=== PATIENT | female | born 1995 | race Caucasian/White ===

== ENCOUNTER 2021-09-03 14:29 | Emergency (ER) | payer OTHER, SELFPAY ==
--- NOTE | ~2021-09-03 | XR_ITS ---
EXAMINATION: XR CHEST CLINICAL INFORMATION: Shortness of breath, history of COVID. COMPARISON: None TECHNIQUE: 2 views of the chest were obtained. FINDINGS: The lungs are clear. There are no pleural effusions. The heart and mediastinal structures are unremarkable. XR/XR chest 2V IMPRESSION: No acute cardiopulmonary process.
[2021-09-03 14:37] VITALS: BP 115/58; BP 126/82; PULSE 78; PULSE 85; RESP 17; O2SAT 98; O2SAT 99; BMI 37.4
--- NOTE | 2021-09-03 14:57 | ED_ITS ---
HPI - General Adult General Chief complaint: Anxiety Stated complaint: SOB Time Seen by Provider: 09/03/21 14:48 Source: patient, EMS and RN notes reviewed Mode of arrival: ambulatory Limitations: no limitations History of Present Illness HPI narrative: Pt brought by EMS for chest tightness, SOB and feeling anxious. Pt feeling better in room. PT given albuterol neb by EMS, which helped (per EMS exp wheezes prior to neb). Pt states she has a hx of feeling anxious, but no dx of anxiety, no meds. pt tested + for covid 7 days ago (both rapid and pcr). Symptoms were MICHAEL and st. MICHAEL resolved, st persistant and over last 3 days mild cough and SOB. pt states she felt some palpitations or flutterin of her heart this morning, but none now. pt. not vaccinated for covid Related Data Previous Rx's Medication Instructions Recorded albuterol sulfate 90 mcg/actuation 1 inh INHALATION QID PRN #6.7 g 09/03/21 aerosol inhaler lorazepam 0.5 mg tablet (Ativan) 0.5 mg PO BID PRN #5 tab 09/03/21 Allergies Allergy/AdvReac Type Severity Reaction Status Date / Time dog dander [DOG] Allergy Mild SNEEZING Unverified 04/21/20 19:19 WATER EYS, HIVES PURELL Allergy Intermediate SWELLING Uncoded 04/21/20 19:19 Review of Systems Verdana 4l Review of Systems: Verdana 4d Stephan 4d . Constitutional : No trauma, No Weight loss, No Fever, No Chills, ENT/Mouth : No Hearing loss, No Ear Pain, No Nasal Congestion, No Sinus Pain, No Hoarseness, + sore throat, No Rhinorrhea, No Swallowing Difficulty Cardiovascular : resolved Chest tightness, , No SOB Respiratory : + Cough, mild Dyspnea Gastrointestinal : No Nausea, No Vomiting, No Diarrhea, No abdominal Pain, Genitourinary : No Dysuria, No Urinary Frequency, Musculoskeletal : no Back pain, No neck pain, No joint stiffness, No joint swelling Skin : No Skin Lesions, No rash or signs of infection Neuro : No Weakness, No radiation, No Numbness, No Paresthesias, No headache, Denies history of IV drug usage. Psych : No SI/HI/thoughts of self injury, +anxiety Yes all other systems are reviewed and are negative [facility] Past Medical History Attestation statement: The following information was validated with the patient. Medical History (Updated 09/03/21 @ 15:52 by VANNA Rea) No known health problems Social History Social History Advance Directives: No Advance Directives Information Provided: No Patient : No Physical Exam Verdana 4l Vital Signs: Verdana 4d Verdana 4d Vital Signs: Verdana 4d Verdana 4Bd Last Vital Signs Verdana 4d Server Programmer New 4d Server Programmer New 4d Pulse 78 09/03/21 14:37 Server Programmer New 4d Resp 17 09/03/21 14:37 Server Programmer New 4d BP 126/82 09/03/21 14:37 Pulse Ox 98 09/03/21 14:37 BMI result Body Mass Index 37.4 vital signs have been reviewed as normal and appeared to be correct.? Blood pressure normal.? Heart rate normal.? Respiration rate normal.? Temperature normal.? Oxygen saturation normal. Appearance: Alert. Oriented X3. appears anxious and tearful. ? Head: Normal external exam. Normocephalic. Atraumatic.? Eyes: PERRLA. EOMI. Conjunctiva and sclera normal. Eyelids normal. ? ENT: EAC normal. Pharynx normal. Uvula midline. Moist mucous membranes. ? No trismus noted.? No drooling noted.? No muffled voice noted. Neck: Normal inspection. Neck supple. Normal ROM. No adenopathy. No meningeal signs. No neck mass noted. CVS: Normal heart rate and rhythm. Heart sound normal. No murmurs noted. Respiratory: No respiratory distress. Painless inspiration. Breath sounds normal. No wheezes/rales/rhonchi noted. Chest nontender. ? No accessory muscle usage noted or decreased air movement noted. Abdomen: Soft and nontender Back: ?No CVA tenderness.? Full range of motion noted. Skin: Skin warm and dry.? Normal skin color.? Normal skin turgor. No rashes/lesions/lacerations noted. Extremities: No lower extremity edema. ? Extremities exhibit normal range of motion.? Extremities nontender. Normal gait Neuro: Oriented X 3.? No motor deficit noted. No sensory deficit noted. Course Course Course Narrative: 15:00 pt appears more calm and not feeling SOB now. 15:30 discussed results of CXR, pt has f/u with pcp in 10 days. Reassured patient and also discussed reasons to return to ED. Medical Decision Making Imaging Data Chest x-ray: Attestation: I personally reviewed and interpreted this imaging study as follows: Radiologist's impression: EXAMINATION: XR CHEST CLINICAL INFORMATION: Shortness of breath, history of COVID. COMPARISON: None TECHNIQUE: 2 views of the chest were obtained. FINDINGS: The lungs are clear. There are no pleural effusions. The heart and mediastinal structures are unremarkable. XR/XR chest 2V IMPRESSION: No acute cardiopulmonary process. Discharge Plan Discharge Clinical Impression: Acute anxiety, COVID Patient Disposition: Home, Self-Care Instructions: Anxiety (ED), COVID-19 (Coronavirus Disease 2019) (ED) Additional Instructions: Take medication as prescribed. follow up with primary care provider on 09/15/21. Return if worse. Prescriptions: New lorazepam [Ativan] 0.5 mg tablet 0.5 mg PO BID PRN (Reason: anxiety) Qty: 5 0RF albuterol sulfate 90 mcg/actuation HFA aerosol inhaler 1 inh inhalation QID PRN (Reason: shortness of breath or wheezing) Qty: 6.7 0RF Referrals: Jean Carlos Hernandez MD [Primary Care Provider] - 2 days Interventions: ED Discharge Assessment Last Done: 09/03/21 16:11 Discharge Date/Time: 09/03/21 16:22
[2021-09-03] MEDS: LORazepam 0.5 MG TABLET PO (15:24)
== END 2021-09-03 16:22 | disposition home or self-care (01) ==
PROVIDERS: Emergency Provider Emergency Medicine; PCP Internal Medicine
DX: U07.1 COVID-19 (principal); F41.1 Generalized anxiety disorder; R06.02 Shortness of breath; R51.9 Headache, unspecified; Z79.899 Other long term (current) drug therapy
CPT/HCPCS: 71046; 99283

== ENCOUNTER 2023-02-18 09:34 | Emergency (ER) | payer OTHER, SELFPAY ==
[2023-02-18 09:43] VITALS: BP 147/92; PULSE 87; RESP 18; TEMP 36.8; O2SAT 100
[2023-02-18 10:13] LABS: Hematocrit 41.8 % (37.0-47.0); Hemoglobin 14.1 g/dl (12.0-16.0); Mean Corpuscular HGB Conc 33.7 g/dl (31.0-35.0); Mean Corpuscular Hemoglobin 31.7 pg (27.0-33.0); Mean Corpuscular Volume 93.9 fL (80.0-98.0); Platelet Count 211 X10*3/uL (160-400); Red Blood Count 4.45 X10*6/uL (4.20-5.50); White Blood Count 5.2 X10*3/uL (4.8-10.8)
[2023-02-18 10:14] LABS: Appearance Urine Clear; Color Urine Yellow; Glucose Urine UA Negative (Negative); Leukocyte Esterase Urine Negative (Negative); Nitrite Urine Negative (Negative); Specific Gravity - Urine >= 1.030 (1.005-1.025); Urine Blood Negative (Negative); Urine Ketones Negative (Negative); Urine Protein Trace mg/dL (Neg-Trace)
[2023-02-18 10:15] LABS: Urine Pregnancy NEGATIVE (NEGATIVE)
[2023-02-18 10:16] LABS: UPreg QC Valid YES
[2023-02-18 10:29] LABS: Anion Gap 13 (12-20); Blood Urea Nitrogen 15 mg/dL (9-16); Calcium 9.1 mg/dL (8.4-10.2); Carbon Dioxide 22 mmol/L (22-29); Chloride 106 mmol/L (96-108); Creatinine Clr Calc Pharmacy 142.4; Estimated Glomerular Filt Rate > 60; Glucose Random 105 mg/dL (60-115); Potassium 3.8 mmol/L (3.3-5.1); Sodium 137 mmol/L (135-145)
== END 2023-02-18 17:53 | disposition left against medical advice (07) ==
PROVIDERS: Emergency Provider Emergency Medicine; PCP Internal Medicine
DX: R10.9 Unspecified abdominal pain (principal)
CPT/HCPCS: 36415; 80048; 81003; 81025; 85027; 99282; 99283

== ENCOUNTER 2023-03-25 11:05 | Emergency (ER) | payer OTHER, SELFPAY ==
[2023-03-25 11:49] VITALS: BP 148/88; PULSE 69; RESP 16; TEMP 36.6; O2SAT 98; BMI 48.7
--- NOTE | 2023-03-25 11:58 | ED.EAR ---
HPI - Ear Problem General Chief complaint: Ear Problems Stated complaint: Headache/R ear pain Time Seen by Provider: 03/25/23 11:58 Source: patient and RN notes reviewed Mode of arrival: ambulatory Limitations: no limitations History of Present Illness HPI Narrative: This is a 27-year-old female, with no known past medical history, presenting to the emergency department with complaints of right ear pain x 3 days. Patient was seen at an urgent care yesterday and was told that she had fluid behind her eardrum new with prescribed an allergy medication. 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 She endorses a slight headache as well as dizziness. Denies fevers, chills, sore throat, runny nose, chest pain, shortness breath, cough. She has not been swimming recently. She has been taking ibuprofen for symptoms which has provided her without any relief. No other complaints or concerns at this. MD Complaint: ear pain Location: right ear Duration: constant Severity: moderate Relieving factors: nothing Exacerbating factors: nothing Discharge from ear: no Associated symptoms ear: headache Treatment prior to arrival: none Related Data Previous Rx's Medication Instructions Recorded albuterol sulfate 90 mcg/actuation 1 inh inhalation QID PRN shortness 09/03/21 aerosol inhaler of breath or wheezing #6.7 grams lorazepam 0.5 mg tablet (Ativan) 0.5 mg PO BID PRN anxiety #5 tabs 09/03/21 ofloxacin 0.3 % ear drops 10 drp otic (ear) left Q24H 7 days 03/25/23 #10 mL Allergies Allergy/AdvReac Type Severity Reaction Status Date / Time dog dander [DOG] Allergy Mild SNEEZING Verified 03/25/23 11:48 WATER EYS, HIVES PURELL Allergy Intermediate SWELLING Uncoded 04/21/20 19:19 Review of Systems Review of Systems: Yes all other systems are reviewed and are negative Constitutional: Constitutional: Reports as per [facility] Past Medical History Medical History No known health problems Social History Social History Advance Directives: No Advance Directives Information Provided: Yes Physical Exam Vital Signs: Vital Signs: Last Vital Signs Temp 97.9 F 03/25/23 11:49 Pulse 69 03/25/23 11:49 Resp 16 03/25/23 11:49 BP 148/88 H 03/25/23 11:49 Pulse Ox 98 03/25/23 11:49 O2 Del Method Room Air 03/25/23 11:49 BMI result Body Mass Index 48.7 Const: General: cooperative, comfortable and no acute distress Orientation/consciousness: patient oriented x3 Limitations: no limitations HEENT: Other: Right ear canal is mildly erythematous, nonedematous. TM is nonerythematous nonbulging. TM is intact. Head: Yes normal to inspection, Yes normocephalic and Yes atraumatic Ears: hearing grossly normal bilaterally General nose exam: Normal external nose present Face and sinus: Yes normal facial exam Mouth: Normal oral and palatal mucosa present, oropharynx normal and moist mucous membranes Throat: Yes posterior oropharynx normal Eyes: General: appearance normal, both eyes and all related structures Eyelids: Yes eyelids normal Conjunctivae: conjunctivae normal Sclerae: sclerae normal Pupils: Equal, round and reactive pupils present EOM: EOMs intact bilaterally Neck: Neck: Yes normal visual inspection, Yes full ROM and Yes no lymphadenopathy Lymphatic: no lymphadenopathy noted Chest: Chest palpation & inspection: normal inspection of the chest Resp: Effort & Inspection: normal respiratory effort and able to speak in complete sentences Auscultation: clear to auscultation bilaterally, no crackles, no rales, no rhonchi and no wheezes Cardio: Rate: regular rate Rhythm: regular rhythm Heart sounds: S1 normal heart sound present and S2 normal heart sound present GI: Inspection: Yes normal to inspection Skin: General skin exam: no rashes or lesions noted Trauma: no lacerations or abrasions Wounds: no wounds Neuro: General: patient oriented x3 and moves all extremities Cranial nerves: Yes Equal, round and reactive pupils present Extrem: General: Yes normal to inspection Right upper extremity: normal to inspection Left upper extremity: normal to inspection Right lower extremity: normal to inspection Left lower extremity: normal to inspection Medical Decision Making Medical Decision Making MDM Narrative: 27-year-old presenting to emergency for evaluation right ear pain. Mildly hypertensive at 148/88, likely due to pain. All other vital signs WNL. DDX including otitis media vs otitis externa. Less likely TM perforation, sinusitis, malignant otitis. Signs and symptoms consistent with otitis externa. TM is intact, therefore will d/c on ear drops. Encouraged to continue with allergy medications to help. Disccussed return precautions. Pt understands and agrees with plan. stable for d/c. Differential Diagnosis Differential Diagnoses: The differential diagnosis associated with the presentation includes see above Discharge Plan Discharge Clinical Impression: Otitis externa Patient Disposition: Home, Self-Care Instructions: Otitis Externa (ED) Additional Instructions: Please use prescribed antibiotic as directed. Take ibuprofen and Tylenol as needed for your pain. Please take allergy meds as you as you have fluid behind her eardrum. Watch for any new worsening symptoms including but not limited to worsening dizziness, please return for re-evaluation. Prescriptions: New ofloxacin 0.3 % drops 10 drp otic (ear) left Q24H 7 Days Qty: 10 0RF No Action lorazepam [Ativan] 0.5 mg tablet 0.5 mg PO BID PRN (Reason: anxiety) Qty: 5 0RF albuterol sulfate 90 mcg/actuation HFA aerosol inhaler 1 inh inhalation QID PRN (Reason: shortness of breath or wheezing) Qty: 6.7 0RF Interventions: ED Discharge Assessment Last Done: 03/25/23 12:04 Discharge Date/Time: 03/25/23 12:06
== END 2023-03-25 12:06 | disposition home or self-care (01) ==
PROVIDERS: Emergency Provider Emergency Medicine
DX: H60.91 Unspecified otitis externa, right ear (principal); Z79.899 Other long term (current) drug therapy
CPT/HCPCS: 99282; 99283

== ENCOUNTER 2023-06-12 11:19 | Outpatient (AMB) | payer OTHER, SELFPAY ==
--- NOTE | 2023-06-12 12:22 | MHC.OFFWIV ---
Intake Vital Signs 06/12/23 12:25 Height 5 ft 8 in Weight 320 lb BMI 48.7 BP 122/76 Blood Pressure Location Rt brachial Position Sitting Pulse 79 Pulse Source Pulse Oximeter Temp 98 F Temp Source Temporal Artery Scan Pulse Oximetry (%) 97 Oxygen Delivery Method Room Air Intake Visit Reasons: EP, chest congestion, cough (masked) Intake Note: Pt is here c/o chest congestion and on going cough. Allergies dog dander [DOG] Allergy (Mild, Verified 06/12/23 12:44) SNEEZING WATER EYS, HIVES PURELL Allergy (Intermediate, Uncoded 06/12/23 12:25) SWELLING Medication List - Last Reconciled 06/12/23 by RHIANNA Chaparro No Known Home Meds Do you need a note to return to daycare/school/sports/work: Yes HPI HPI Comments History of Present Illness Details here today w 5 days of nasal congestion, headache, pressure behind eyes, pain in bilat ears R>L, last night started w/ chest congestion and cough. not taking anything otc to help. denies fever, chills, known sick contacts. [facility] Medical History No known health problems Review of Systems Const All systems reviewed & are unremarkable except as noted in HPI and below Physical Exam Vital Signs: Last Vital Signs Temp 98 F 06/12/23 12:25 Pulse 79 06/12/23 12:25 BP 122/76 06/12/23 12:25 Pulse Ox 97 06/12/23 12:25 Oxygen Delivery Method Room Air 06/12/23 12:25 BMI result Body Mass Index 48.7 Const Other: AWAKE ALERT MILDLY ILL APPEARING NAD PERRLA, SCLERAS CLEAR TM INTACT, PURULENT EFFUSIONS BILAT R>L NASAL CONGESTION, FRONTAL AND MAXILLARY SINUSES TTP BILAT, TURBINATES PALE AND EDEMATOUS PHARYNX WNL LS CTAB MILD COUGH W/O DISTRESS SKIN PWD Assessment & Plan Assessment & Plan (1) Sinusitis: Code(s): J32.9 - Chronic sinusitis, unspecified Qualifiers: Sinusitis location: pansinusitis Chronicity: acute Recurrence: non-recurrent Qualified Code(s): J01.40 - Acute pansinusitis, unspecified Medications: New albuterol sulfate 90 mcg/actuation 2 puffs inhalation Q4-6H 30 days PRN 8.5 grams 0RF shortness of breath or wheezing amoxicillin-pot clavulanate 875-125 mg 1 tab PO BID 7 days 14 tabs 0RF Patient Instructions: TAKE AB DIRECTED, WITH FOOD. USE OTC FLONASE AND/OR NASAL SALINE BUT NO OTHER DECONGESTANTS SHE ASKED FOR A REFILL ON ALBUTEROL TO HAVE ON HAND, THIS WAS SENT IN TODAY Coding Level of Care Code Est Pt Level 3 (56888) Diagnoses Acute non-recurrent pansinusitis J01.40 Sinusitis location: pansinusitis Chronicity: acute Recurrence: non-recurrent
[2023-06-12 12:25] VITALS: BP 122/76; PULSE 79; TEMP 36.6; O2SAT 97; BMI 48.7
== END 2023-06-12 13:12 | disposition home or self-care (01) ==
PROVIDERS: Visit Provider Nurse Practitioner Family
DX: J01.40 Acute pansinusitis, unspecified (principal)
CPT/HCPCS: 99213

== ENCOUNTER 2023-06-17 12:34 | Emergency (ER) | payer OTHER, SELFPAY ==
--- NOTE | ~2023-06-17 | XR_ITS ---
EXAMINATION: XR CHEST CLINICAL INFORMATION: Cough, pain Patient states rib pain, congestion, and shortness of breath COMPARISON: Chest 09/03/2021 TECHNIQUE: 2 views of the chest were obtained. 1325 FINDINGS: No significant abnormality is noted involving the heart, lungs, mediastinum, bony thorax or soft tissues. XR/XR chest 2V IMPRESSION: No acute cardiopulmonary disease.
[2023-06-17 12:53] VITALS: BP 139/73; PULSE 84; RESP 18; TEMP 36.6; O2SAT 98; BMI 48.7
--- NOTE | 2023-06-17 12:54 | ED.GENADULT ---
HPI - General Adult General Chief complaint: Upper Respiratory Symptoms Stated complaint: Worsening sinus infection Time Seen by Provider: 06/17/23 13:47 Source: patient Mode of arrival: ambulatory Limitations: no limitations History of Present Illness HPI narrative: 28-year-old female previously healthy presents the ER with complaints of sinus congestion, sinus pressure, cough, bilateral rib pain, right eye tearing >1 week. she went to urgent care on 06/12 and was diagnosed with a sinus infection started on Augmentin. She took 48 hours of Augmentin but developed an itching rash over her body so she discontinued the medication. She denies chest pain, shortness of breath, leg swelling or leg pain. no recent travel, recent surgeries, OCP use, family history of DVT or PE Related Data Previous Rx's Medication Instructions Recorded Ventolin HFA 90 mcg/actuation 2 puff inhalation Q4-6H PRN 06/12/23 aerosol inhaler (albuterol sulfate) shortness of breath or wheezing 30 days #18 grams amoxicillin 875 mg-potassium 1 tab PO BID 7 days #14 tabs 06/12/23 clavulanate 125 mg tablet doxycycline monohydrate 100 mg 100 mg PO BID #20 tabs 06/17/23 tablet prednisone 20 mg tablet 40 mg (2 x 20 mg) PO DAILY #10 tabs 06/17/23 Allergies Allergy/AdvReac Type Severity Reaction Status Date / Time dog dander [DOG] Allergy Mild SNEEZING Verified 06/12/23 12:44 WATER EYS, HIVES amoxicillin [From Augmentin] Allergy Rash Verified 06/17/23 12:56 clavulanic acid Allergy Rash Verified 06/17/23 12:56 [From Augmentin] PURELL Allergy Intermediate SWELLING Uncoded 06/12/23 12:25 Review of Systems Review of Systems: Yes all other systems are reviewed and are negative Constitutional: Constitutional: Reports no additional constitutional complaints, Denies body ache(s), Denies chills, Denies fever(s), Denies headache(s) and Denies weakness Eyes: Eyes: Reports no additional eye complaints and Denies change in vision ENT: Reports system reviewed and no additional complaints, except as documented, Denies dizziness, Reports otalgia, Denies headache(s), Denies nasal congestion, Denies nasal discharge, Denies neck pain, Reports sinus pain and Reports sinus pressure Cardiovascular: Cardiovascular: Reports no additional cardiovascular complaints, Reports chest pain, Denies leg edema and Denies dyspnea Respiratory: Respiratory: Reports no additional respiratory complaints, Denies cough and Denies dyspnea Gastrointestinal: Gastrointestinal: Reports no additional gastrointestinal complaints, Denies abdominal pain, Denies diarrhea, Denies nausea and Denies vomiting Genitourinary: Genitourinary: Reports no additional female genitourinary complaints and Denies urinary incontinence Musculoskeletal: Musculoskeletal: Reports no additional musculoskeletal complaints, Denies back pain, Denies arthralgias, Denies joint swelling, Denies neck pain, Denies numbness and Denies tingling Integumentary/Breasts: Skin/Breast: Reports system reviewed and no additional complaints, except as docu and Denies rash Neurologic: Reports system reviewed and no additional complaints, except as documented, Denies Abnormal speech present, Denies dizziness, Denies headache(s), Denies numbness, Denies tingling and Denies weakness PMFSH Past Medical History Attestation statement: The following information was validated with the patient. Source: old records reviewed and nursing notes reviewed Medical History No known health problems Social History Social History Advance Directives: No Physical Exam ED Vital Signs: Vital Signs - 24 hr 06/17/23 12:53 Temperature 97.8 F Pulse Rate 84 Respiratory Rate 18 Blood Pressure 139/73 Pulse Oximetry 98 Oxygen Delivery Method Room Air BMI result Body Mass Index 48.7 Const General: cooperative, healthy appearing, comfortable and no acute distress Orientation/consciousness: patient oriented x3 Limitations: no limitations HENMT Head: Yes normal to inspection Ears: hearing grossly normal bilaterally and TM abnormal bulging and erythematous General nose exam: Normal external nose present Face and sinus: Yes normal facial exam and Yes sinus tenderness Mouth: Normal oral and palatal mucosa present Throat: Yes posterior oropharynx normal, Yes tonsils normal and Yes uvula midline Eyes General: appearance normal, both eyes and all related structures Pupils: Equal, round and reactive pupils present Neck Neck: Yes normal visual inspection, Yes full ROM, Yes no lymphadenopathy and Yes no meningeal signs Chest Chest palpation & inspection: normal inspection of the chest Resp Effort & Inspection: normal respiratory effort Auscultation: clear to auscultation bilaterally Cardio Rate: regular rate Rhythm: regular rhythm Peripheral pulses: Peripheral pulses 2+ throughout GI Inspection: Yes normal to inspection Palpation (GI): Soft to palpation and nontender Auscultation: normal bowel sounds Back/Spine/Pelvis Thoracic/Lumbar Spine: thoracic and lumbar spine normal to inspection Skin General skin exam: no rashes or lesions noted Neuro General: patient oriented x3, no meningeal signs, no focal motor deficits and normal sensation to monofilament Cranial nerves: Yes Equal, round and reactive pupils present Cognition (Neuro): normal cognition Speech: No Abnormal speech present Gait exam (Neuro): Normal gait present Motor exam (neuro): 5/5 motor strength present throughout Extrem General: Yes normal to inspection Course Course Course Narrative: RME performed by Lacie Grace PA-C. Patient is a 28 year old assigned female at presenting to the emergency department with a cough and rib pain. Patient was seen [address] [facility], prescribed Augmentin, started to have a rash 3 days after starting the medication, so she stopped it. Labs, imaging, swabs ordered. Patient placed back in the waiting room pending room availability and results. Reevaluation(s) Reevaluation #1: Labs are unremarkable. viral testing is negative. Chest x-ray shows no acute finding. EKG is nonischemic. Patient likely has continued sinusitis and possibly some bronchitis and so put her on a different antibiotic is appears she may have had a mild allergic reaction to the Augmentin. Will also add prednisone. Reviewed worrisome signs and symptoms of when to return to the emergency room. Comfortable plan for discharge home. Medical Decision Making Medical Decision Making [facility] Narrative: 28-year-old female previously healthy presents the ER with complaints of sinus congestion, sinus pressure, cough, bilateral rib pain, right eye tearing >1 week. she went to urgent care on 06/12 and was diagnosed with a sinus infection started on Augmentin. She took 48 hours of Augmentin but developed an itching rash over her body so she discontinued the medication. She denies chest pain, shortness of breath, leg swelling or leg pain. no recent travel, recent surgeries, OCP use, family history of DVT or PE Bilateral TM with erythema, draining from right eye, sinus TTP Otherwise unremarkable exam Will obtain labs, EKG, CXR, viral testing Differential Diagnosis Differential Diagnoses: The differential diagnosis associated with the presentation includes PERC 0 viral syndrome PNA Admission/Observation Consideration of admission/observation: Escalation of care including admission/observation considered Lab Data MDM Lab Attestation statement: I reviewed the patient's lab results. 06/17/23 13:08 06/17/23 13:08 Labs: Lab Results 06/17/23 06/17/23 Range/Units 13:08 14:14 WBC 7.4 (4.8-10.8) X10*3/uL RBC 4.59 (4.20-5.50) X10*6/uL Hgb 14.6 (12.0-16.0) g/dl Hct 42.2 (37.0-47.0) % MCV 91.9 (80.0-98.0) fL MCH 31.8 (27.0-33.0) pg MCHC 34.6 (31.0-35.0) g/dl RDW 12.6 (11.0-16.0) % Plt Count 225 (160-400) X10*3/uL MPV 10.1 (9.4-12.3) fL Immature Gran % (Auto) 0.4 (0.0-0.4) % Neut % (Auto) 69.7 (45-73) % Lymph % (Auto) 19.0 L (20-40) % Humphreys % (Auto) 7.8 (2-11) % Eos % (Auto) 2.7 (0-4) % Baso % (Auto) 0.4 (0-2) % Lymph # (Auto) 1.4 (1.2-4.9) X10*3/uL Humphreys # (Auto) 0.6 (0.1-1.2) X10*3/uL Eos # (Auto) 0.2 (0.0-0.4) X10*3/uL Baso # (Auto) 0.0 (0.0-0.2) X10*3/uL Abs Immat Gran (auto) 0.03 (0.00-0.03) X10*3/uL Absolute Neuts (auto) 5.1 (2.0-8.3) x10*3/uL Absolute Nucleated RBC 0.000 (0.0-0.012) X10*3/uL Nucleated RBC % (auto) 0.0 (0.0-0.2) /100WBC PT 11.9 (11.1-13.3) SEC INR 1.0 (0.9-1.1) APTT 28.4 (26.0-36.4) SEC Sodium 136 (135-145) mmol/L Potassium 3.9 (3.3-5.1) mmol/L Chloride 105 (96-108) mmol/L Carbon Dioxide 24 (22-29) mmol/L Anion Gap 11 L (12-20) BUN 13 (9-16) mg/dL Creatinine 0.72 (0.5-1.4) mg/dL Estim Creat Clear Calc 173.8 Estimated GFR > 60 Random Glucose 91 (60-115) mg/dL Calcium 9.1 (8.4-10.2) mg/dL Magnesium 2.0 (1.6-2.6) mg/dL Total Bilirubin 0.8 (0.0-1.0) mg/dL AST 21 (5-31) U/L ALT 24 (0-31) U/L Alkaline Phosphatase 86 (39-117) U/L Troponin I High Sens < 2.7 (<3.5-17.0) ng/L Total Protein 7.6 (6.5-8.0) g/dL Albumin 4.0 (3.5-5.0) g/dL Urine Color Yellow Urine Appearance Cloudy Urine pH 6.5 (5.0-9.0) Ur Specific Sheldon 1.020 (1.005-1.025) Urine Protein Negative (Neg-Trace) mg/dL Urine Glucose (UA) Negative (Negative) mg/dL Urine Ketones Negative (Negative) mg/dL Urine Blood Negative (Negative) Urine Nitrite Negative (Negative) Ur Leukocyte Esterase Small (1+) H (Negative) Urine RBC 0-2 (0-2) /HPF Urine WBC 11-20 H (0-5) /HPF Ur Squamous Epith Cells >20 (0-2) /HPF Urine Bacteria 3+ (None Seen) Hyaline Casts 0-2 (0-2) /LPF Influenza Type A (PCR) NEGATIVE (Negative) Influenza Type B (PCR) NEGATIVE (Negative) RSV RNA Qual (PCR) NEGATIVE (Negative) SARS-CoV-2 RNA (RT-PCR) NEGATIVE (Negative) Independent Interpretation I performed an independent interpretation of an: EKG and Plain X-Ray Interpretation: I independently reviewed the EKG which shows normal sinus rhythm with a rate of 78, normal RI, normal QRS, normal QT Radiology Impression Discussion of test interpretation with radiology: I have reviewed the radiologist's reading. Radiologist Impression: [id number] [place] [id number] XRay Report Signed Patient: Sheba Pinto MR#: [id number] : 1995 Acct:[id number] Age/Sex: 28 / F ADM Date: 06/17/23 Loc: .ED Attending Dr: Ordering Physician: Lacie Grace Date of Service: 06/17/23 Procedure(s): XR chest 2V Accession Number(s): [id number] cc: Lacie Grace; Physician,Unknown ~ EXAMINATION: XR CHEST CLINICAL INFORMATION: Cough, pain Patient states rib pain, congestion, and shortness of breath COMPARISON: Chest 09/03/2021 TECHNIQUE: 2 views of the chest were obtained. 1325 FINDINGS: No significant abnormality is noted involving the heart, lungs, mediastinum, bony thorax or soft tissues. XR/XR chest 2V IMPRESSION: No acute cardiopulmonary disease. Prescription Management I considered prescription management with: Antibiotic Discharge Plan Discharge Clinical Impression: Sinusitis, Bronchitis Patient Disposition: Home, Self-Care Instructions: Sinusitis (ED), Acute Bronchitis (ED) Additional Instructions: continue your inhaler as needed take the medications as prescribed stop taking the Augmentin use Motrin or Tylenol for pain as needed return for worsening symptom Prescriptions: New doxycycline monohydrate 100 mg tablet 100 mg PO BID Qty: 20 0RF prednisone 20 mg tablet 40 mg PO DAILY Qty: 10 0RF No Action albuterol sulfate [Ventolin HFA] 90 mcg/actuation HFA aerosol inhaler 2 puff inhalation Q4-6H PRN (Reason: shortness of breath or wheezing) 30 Days Qty: 18 0RF amoxicillin-pot clavulanate 875-125 mg tablet 1 tab PO BID 7 Days Qty: 14 0RF Referrals: Physician,Unknown J [Primary Care Provider] - 1 week Interventions: ED Discharge Assessment Last Done: 06/17/23 15:29 Discharge Date/Time: 06/17/23 15:30
--- NOTE | 2023-06-17 12:55 | ECG_ITS ---
Test Reason : rib pain Blood Pressure : / mmHG Vent. Rate : 078 BPM Atrial Rate : 078 BPM P-R Int : 136 ms QRS Dur : 096 ms QT Int : 378 ms P-R-T Axes : 048 053 028 degrees QTc Int : 430 ms Normal sinus rhythm with sinus arrhythmia Normal ECG Referred By: Lacie Grace Electronically Signed By:EVELYN MILLER
[2023-06-17 13:18] LABS: MANUAL DIFF FLAG NO
[2023-06-17 13:21] LABS: Basophils Percent Auto 0.4 % (0-2); Eosinophils Absolute Auto 0.2 X10*3/uL (0.0-0.4); Eosinophils Percent Auto 2.7 % (0-4); Hematocrit 42.2 % (37.0-47.0); Hemoglobin 14.6 g/dl (12.0-16.0); Imm Gran Abs Auto 0.03 X10*3/uL (0.00-0.03); Imm Gran Pct Auto 0.4 % (0.0-0.4); Lymphocytes Absolute Auto 1.4 X10*3/uL (1.2-4.9); Mean Corpuscular HGB Conc 34.6 g/dl (31.0-35.0); Mean Corpuscular Hemoglobin 31.8 pg (27.0-33.0); Mean Corpuscular Volume 91.9 fL (80.0-98.0); Mean Platelet Volume 10.1 fL (9.4-12.3); Monocytes Absolute Auto 0.6 X10*3/uL (0.1-1.2); Monocytes Percent Auto 7.8 % (2-11); Neutrophils Absolute Auto 5.1 x10*3/uL (2.0-8.3); Neutrophils Percent Auto 69.7 % (45-73); Platelet Count 225 X10*3/uL (160-400); Red Blood Count 4.59 X10*6/uL (4.20-5.50); Red Cell Distribution Width 12.6 % (11.0-16.0); White Blood Count 7.4 X10*3/uL (4.8-10.8)
[2023-06-17 13:27] LABS: Prothrombin Time 11.9 SEC (11.1-13.3)
[2023-06-17 13:29] LABS: Partial Thromboplastin Time 28.4 SEC (26.0-36.4)
[2023-06-17 13:37] LABS: Alanine Aminotransferase 24 U/L (0-31); Alkaline Phosphatase 86 U/L (39-117); Anion Gap 11 (12-20); Aspartate Amino Transferase 21 U/L (5-31); Bilirubin Total 0.8 mg/dL (0.0-1.0); Blood Urea Nitrogen 13 mg/dL (9-16); Calcium 9.1 mg/dL (8.4-10.2); Carbon Dioxide 24 mmol/L (22-29); Chloride 105 mmol/L (96-108); Creatinine Clr Calc Pharmacy 173.8; Estimated Glomerular Filt Rate > 60; Glucose Random 91 mg/dL (60-115); Potassium 3.9 mmol/L (3.3-5.1); Sodium 136 mmol/L (135-145); Total Protein 7.6 g/dL (6.5-8.0)
[2023-06-17 13:50] LABS: Troponin-I High Sensitivity < 2.7 ng/L (<3.5-17.0)
[2023-06-17 13:59] LABS: Influenza A PCR NEGATIVE (Negative); Influenza B PCR NEGATIVE (Negative); Resp Syncy Virus RNA Qual PCR NEGATIVE (Negative); SARS COV2 PCR INHOUSE NEGATIVE (Negative)
[2023-06-17 14:26] LABS: Appearance Urine Cloudy; Color Urine Yellow; Glucose Urine UA Negative (Negative); Leukocyte Esterase Urine Small (1+) (Negative); Nitrite Urine Negative (Negative); PH 6.5 (5.0-9.0); UMIC TRIGGER UACC YES; Urine Blood Negative (Negative); Urine Ketones Negative (Negative); Urine Protein Negative (Neg-Trace)
[2023-06-17 14:31] LABS: Bacteria Urine 3+ (None Seen); Hyaline Casts Urine 0-2 /LPF (0-2); RBC Urine 0-2 /HPF (0-2); Squamous Epithelial Cell Urine >20 /HPF (0-2); UACC Culture Trigger YES
== END 2023-06-17 15:30 | disposition home or self-care (01) ==
PROVIDERS: Physician Assistant Medical; Emergency Provider Emergency Medicine
DX: J32.9 Chronic sinusitis, unspecified (principal); J40 Bronchitis, not specified as acute or chronic; R09.81 Nasal congestion; R05.9 Cough, unspecified; R07.81 Pleurodynia; Z20.822 Contact with and (suspected) exposure to COVID-19; Z20.828 Contact with and (suspected) exposure to other viral communicable diseases
CPT/HCPCS: 0241U; 71046; 80053; 81001; 83735; 84484; 85025; 85610; 85730; 87086; 93005; 93010; 99283

== ENCOUNTER 2023-07-10 05:24 | Emergency (ER) | payer OTHER, SELFPAY ==
--- NOTE | ~2023-07-10 | XR_ITS ---
EXAMINATION: XR CHEST CLINICAL INFORMATION: Cough. COMPARISON: None available. TECHNIQUE: 2 views of the chest were obtained. FINDINGS: No significant abnormality is noted involving the heart, lungs, mediastinum, bony thorax or soft tissues. XR/XR chest 2V IMPRESSION: Unremarkable examination.
[2023-07-10 05:31] VITALS: BP 140/82; PULSE 80; O2SAT 99
--- NOTE | 2023-07-10 05:32 | ED.URI ---
HPI - URI/Sore Throat General Chief Complaint: Upper Respiratory Symptoms Stated Complaint: cough Time Seen by Provider: 07/10/23 05:31 Source: patient and old records reviewed Mode of arrival: EMS Limitations: no limitations History of Present Illness HPI Narrative: 28 yo female with PMH of COVID-19, sinusitis just seen here 06/17 and started on doxycycline and prednisone (stopped after 3 days of course because she felt better) for presumed bronchitis/sinusitis after failed augmentin course for sinusitis. She comes in today with c/o 1 week again of this dry persistent cough and not feeling well. She started to take her leftover doxy/steroid course again but it will not get rid of the cough. Her daughter is sick but with a more wet cough - no one else in the house is sick. She even tried a rescue inhaler without relief. MD elicited complaint: cough Onset (ago): week(s) (couple) Consistency: progressively worsening Severity: moderate Able to tolerate fluids by mouth: Yes Exacerbating factors: other (she states her cough comes on at all times) Relieving factors: nothing Context: sick contacts Associated symptoms: cough Treatments prior to arrival: other (tried albuterol INH) Related Data Previous Rx's Medication Instructions Recorded Ventolin HFA 90 mcg/actuation 2 puff inhalation Q4-6H PRN 06/12/23 aerosol inhaler (albuterol sulfate) shortness of breath or wheezing 30 days #18 grams amoxicillin 875 mg-potassium 1 tab PO BID 7 days #14 tabs 06/12/23 clavulanate 125 mg tablet doxycycline monohydrate 100 mg 100 mg PO BID #20 tabs 06/17/23 tablet prednisone 20 mg tablet 40 mg (2 x 20 mg) PO DAILY #10 tabs 06/17/23 fluticasone furoate 100 1 inh inhalation DAILY #30 ea 07/10/23 mcg/actuation blister powder for inhalation Allergies Allergy/AdvReac Type Severity Reaction Status Date / Time dog dander [DOG] Allergy Mild SNEEZING Verified 06/12/23 12:44 WATER EYS, HIVES amoxicillin [From Augmentin] Allergy Rash Verified 06/17/23 12:56 clavulanic acid Allergy Rash Verified 06/17/23 12:56 [From Augmentin] PURELL Allergy Intermediate SWELLING Uncoded 06/12/23 12:25 Review of Systems Review of Systems: Constitutional : No Fever, No Chills ENT/Mouth : No Hoarseness, No sore throat, No Rhinorrhea Eyes: No Redness, No Discharge, No Vision Changes Cardiovascular : No Chest Pain, positive SOB, No Edema Respiratory : positive Cough, No Sputum, positive Wheezing, Gastrointestinal : No Nausea, No Vomiting, No Diarrhea, No abdominal Pain Genitourinary : No Dysuria, No Hematuria Musculoskeletal : No joint pain, No Myalgias Skin : No rash Neuro : No Weakness, No Numbness, No Headache Psych : No anxiety, depression Heme/Lymph: No Bruising, No Bleeding Endocrine : No Polyuria, No Polydipsia All other systems reviewed and are negative [facility] Past Medical History Medical History No known health problems Social History Social History (Updated 07/10/23 @ 05:44 by Kasandra Gonzalez DO) Patient Tobacco Use Status: Current everyday Tobacco user Advance Directives: No Physical Exam Vital Signs: Vital Signs: Last Vital Signs Temp 96.3 F L 07/10/23 05:39 Pulse 87 07/10/23 05:39 Resp 18 07/10/23 05:39 BP 138/70 07/10/23 05:39 Pulse Ox 98 07/10/23 05:48 O2 Del Method Room Air 07/10/23 05:48 BMI result Body Mass Index 48.7 Appearance: Alert. Oriented X3. No acute distress. Eyes: Pupils equal, round and reactive to light. ENT: Pharynx normal. Neck: Normal inspection. Neck supple. CVS: Normal heart rate and rhythm. Pulses normal. Respiratory: No respiratory distress. Breath sounds slightly diminished with dry persistent cough Abdomen: Soft and nontender. Skin: Skin warm and dry. Normal skin color. Normal skin turgor. Extremities: No lower extremity edema. No calf ttp Neuro: Oriented X 3. No motor deficit. No sensory deficit. Medications Administered Discontinued Medications Generic Name Dose Route Start Last Admin Trade Name Freq PRN Reason Stop Dose Admin Albuterol Sulfate 2 puff 07/10/23 06:01 07/10/23 06:21 Albuterol Sulfate 90 Mcg 8 Gm Inhaler INHALE 07/10/23 06:02 2 puff ONCE ONE Administration Medical Decision Making Medical Decision Making MDM Narrative: 28 yo female with PMH of bronchitis and sinusitis who has been treated with doxy and prednisone but didn't complete course until she started to feel ill again and has been taking it for the past 3 days. Her cough is likely reactive airway disease. She is not in any resp distress - she will need viral panel, CXR for pneumonia. Neb treatment and if negative workup will put on anti-tussive and start on fluticasone INH. Differential Diagnosis Differential Diagnoses: The differential diagnosis associated with the presentation includes bronchitis, reactive airway disease Lab Data MDM Lab Attestation statement: I reviewed the patient's lab results. Labs: Lab Results 07/10/23 Range/Units 05:51 Influenza Type A (PCR) NEGATIVE (Negative) Influenza Type B (PCR) NEGATIVE (Negative) RSV RNA Qual (PCR) NEGATIVE (Negative) SARS-CoV-2 RNA (RT-PCR) NEGATIVE (Negative) Independent Interpretation I performed an independent interpretation of an: Plain X-Ray (normal ) Radiology Impression Discussion of test interpretation with radiology: I have reviewed the radiologist's reading. External Record Review External record reviewed: Inpatient record Prescription Management I considered prescription management with: Other Discharge Plan Discharge Clinical Impression: Bronchospasm Patient Disposition: Home, Self-Care Instructions: Bronchospasm (ED) Additional Instructions: chest xray was normal. swabs negative return for worsening symptoms, difficulty breathing, chest pain or any other concerns. you can complete the prednisone but stop taking the doxycycline (antibiotic) it is not necessary. Prescriptions: New fluticasone furoate 100 mcg/actuation blister with device 1 inh inhalation DAILY Qty: 30 0RF Rx Instructions: rinse mouth after use No Action albuterol sulfate [Ventolin HFA] 90 mcg/actuation HFA aerosol inhaler 2 puff inhalation Q4-6H PRN (Reason: shortness of breath or wheezing) 30 Days Qty: 18 0RF doxycycline monohydrate 100 mg tablet 100 mg PO BID Qty: 20 0RF prednisone 20 mg tablet 40 mg PO DAILY Qty: 10 0RF amoxicillin-pot clavulanate 875-125 mg tablet 1 tab PO BID 7 Days Qty: 14 0RF Stand Alone Forms: Work/School Release
[2023-07-10 05:39] VITALS: BP 138/70; PULSE 87; RESP 18; TEMP 35.7; O2SAT 97; BMI 48.7
[2023-07-10 05:48] VITALS: O2SAT 98
[2023-07-10] MEDS: Albuterol Sulfate 90 MCG 8 GM INHALER 2 PUFF INHALE (06:21)
[2023-07-10 06:31] LABS: Influenza A PCR NEGATIVE (Negative); Influenza B PCR NEGATIVE (Negative); Resp Syncy Virus RNA Qual PCR NEGATIVE (Negative); SARS COV2 PCR INHOUSE NEGATIVE (Negative)
[2023-07-10] MEDS: Benzonatate 100 MG CAPSULE PO (07:25)
== END 2023-07-10 07:30 | disposition home or self-care (01) ==
PROVIDERS: Emergency Provider Emergency Medicine; PCP Internal Medicine
DX: J98.01 Acute bronchospasm (principal); Z20.822 Contact with and (suspected) exposure to COVID-19; Z20.828 Contact with and (suspected) exposure to other viral communicable diseases; F17.200 Nicotine dependence, unspecified, uncomplicated
CPT/HCPCS: 0241U; 71046; 94640; 99284; 99285

== ENCOUNTER 2023-10-18 16:28 | Emergency (ER) | payer OTHER, SELFPAY ==
--- NOTE | ~2023-10-18 | XR_ITS ---
EXAMINATION: XR CHEST CLINICAL INFORMATION: Cough, shortness of breath. COMPARISON: Chest radiograph 07/10/2023. TECHNIQUE: 2 views of the chest were obtained. FINDINGS: No significant abnormality is noted involving the heart, lungs, mediastinum, bony thorax or soft tissues. XR/XR chest 2V IMPRESSION: Unremarkable examination.
--- NOTE | 2023-10-18 16:45 | ED.URI ---
HPI - URI/Sore Throat General Chief Complaint: Upper Respiratory Symptoms Stated Complaint: ?URI Related Data Previous Rx's Medication Instructions Recorded Ventolin HFA 90 mcg/actuation 2 puff inhalation Q4-6H PRN 06/12/23 aerosol inhaler (albuterol sulfate) shortness of breath or wheezing 30 days #18 grams amoxicillin 875 mg-potassium 1 tab PO BID 7 days #14 tabs 06/12/23 clavulanate 125 mg tablet doxycycline monohydrate 100 mg 100 mg PO BID #20 tabs 06/17/23 tablet prednisone 20 mg tablet 40 mg (2 x 20 mg) PO DAILY #10 tabs 06/17/23 fluticasone furoate 100 1 inh inhalation DAILY #30 ea 07/10/23 mcg/actuation blister powder for inhalation prednisone 20 mg tablet 60 mg (3 x 20 mg) PO DAILY #12 tabs 10/19/23 Allergies Allergy/AdvReac Type Severity Reaction Status Date / Time dog dander [DOG] Allergy Mild SNEEZING Verified 10/18/23 16:48 WATER EYS, HIVES amoxicillin [From Augmentin] Allergy Rash Verified 10/18/23 16:48 clavulanic acid Allergy Rash Verified 10/18/23 16:48 [From Augmentin] PMFSH Past Medical History Medical History No known health problems Social History Social History Patient Tobacco Use Status: Current everyday Tobacco user Advance Directives: No Advance Directives Information Provided: No Physical Exam Vital Signs: Vital Signs: Last Vital Signs Temp 98.1 F 10/18/23 16:46 Pulse 75 10/18/23 16:46 Resp 20 10/18/23 16:46 BP 155/88 H 10/18/23 16:46 Pulse Ox 98 10/18/23 16:46 O2 Del Method Room Air 10/18/23 16:46 BMI result Body Mass Index 51.2 Course Course Course Narrative: This is an RME: Additional HPI, ROS, PE not included below will be deferred to primary provider. Patient is a 28-year-old female who presents emergency department for evaluation of chest heaviness, difficulty breathing, productive cough, URI symptoms over the past week. Plan: Viral testing, CXR Medical Decision Making Lab Data Labs: Lab Results 10/18/23 Range/Units 18:24 Influenza Type A (PCR) NEGATIVE (Negative) Influenza Type B (PCR) NEGATIVE (Negative) RSV RNA Qual (PCR) NEGATIVE (Negative) SARS-CoV-2 RNA (RT-PCR) NEGATIVE (Negative) Discharge Plan Discharge Clinical Impression: Upper respiratory infection Patient Disposition: Left W/O Completing Treatment Prescriptions: No Action albuterol sulfate [Ventolin HFA] 90 mcg/actuation HFA aerosol inhaler 2 puff inhalation Q4-6H PRN (Reason: shortness of breath or wheezing) 30 Days Qty: 18 0RF doxycycline monohydrate 100 mg tablet 100 mg PO BID Qty: 20 0RF prednisone 20 mg tablet 40 mg PO DAILY Qty: 10 0RF fluticasone furoate 100 mcg/actuation blister with device 1 inh inhalation DAILY Qty: 30 0RF Rx Instructions: rinse mouth after use prednisone 20 mg tablet 60 mg PO DAILY Qty: 12 0RF amoxicillin-pot clavulanate 875-125 mg tablet 1 tab PO BID 7 Days Qty: 14 0RF Discharge Date/Time: 10/18/23 19:53
[2023-10-18 16:46] VITALS: BP 155/88; PULSE 75; RESP 20; TEMP 36.7; O2SAT 98; BMI 51.2
[2023-10-18 19:51] LABS: Influenza A PCR NEGATIVE (Negative); Influenza B PCR NEGATIVE (Negative); Resp Syncy Virus RNA Qual PCR NEGATIVE (Negative); SARS COV2 PCR INHOUSE NEGATIVE (Negative)
== END 2023-10-18 19:53 | disposition left against medical advice (07) ==
PROVIDERS: Nurse Practitioner Family; Emergency Provider Emergency Medicine; PCP Internal Medicine
DX: J06.9 Acute upper respiratory infection, unspecified (principal); Z11.52 Encounter for screening for COVID-19; Z20.828 Contact with and (suspected) exposure to other viral communicable diseases
CPT/HCPCS: 0241U; 71046; 99281; 99283

== ENCOUNTER 2023-10-18 20:35 | Emergency (ER) | payer OTHER, SELFPAY ==
[2023-10-18 20:42] VITALS: BP 140/72; PULSE 82; O2SAT 98
[2023-10-18 21:43] VITALS: BP 137/78; PULSE 83; RESP 18; TEMP 36.9; O2SAT 97; BMI 47.2
[2023-10-18 23:39] VITALS: BP 147/76; PULSE 62; RESP 16; TEMP 37.1; O2SAT 98
--- NOTE | 2023-10-18 23:56 | ED_ITS ---
HPI - URI/Sore Throat General Chief Complaint: Upper Respiratory Symptoms Stated Complaint: SOB x2 days, left [facility] [place] Time Seen by Provider: 10/18/23 23:39 Source: patient Mode of arrival: ambulatory Limitations: no limitations History of Present Illness HPI Narrative: 28yo female who smokes cigarettes and has had several episodes of bronchitis here with complaints of cough, wheezing, shortness of breath x 2 days. No fevers, chills, leg swelling or leg pain, vomiting, diarrhea. No recent travel. No sick contact. No history of DVT/PE, no OCP use. Related Data Previous Rx's Medication Instructions Recorded Ventolin HFA 90 mcg/actuation 2 puff inhalation Q4-6H PRN 06/12/23 aerosol inhaler (albuterol sulfate) shortness of breath or wheezing 30 days #18 grams amoxicillin 875 mg-potassium 1 tab PO BID 7 days #14 tabs 06/12/23 clavulanate 125 mg tablet doxycycline monohydrate 100 mg 100 mg PO BID #20 tabs 06/17/23 tablet prednisone 20 mg tablet 40 mg (2 x 20 mg) PO DAILY #10 tabs 06/17/23 fluticasone furoate 100 1 inh inhalation DAILY #30 ea 07/10/23 mcg/actuation blister powder for inhalation prednisone 20 mg tablet 60 mg (3 x 20 mg) PO DAILY #12 tabs 10/19/23 Allergies Allergy/AdvReac Type Severity Reaction Status Date / Time dog dander [DOG] Allergy Mild SNEEZING Verified 10/18/23 16:48 WATER EYS, HIVES amoxicillin [From Augmentin] Allergy Rash Verified 10/18/23 16:48 clavulanic acid Allergy Rash Verified 10/18/23 16:48 [From Augmentin] Review of Systems Review of Systems: Yes all other systems are reviewed and are negative Constitutional: Constitutional: Reports no additional constitutional complaints, Denies body ache(s), Denies chills, Denies fever(s), Denies headache(s) and Denies weakness Eyes: Eyes: Reports no additional eye complaints and Denies change in vision ENT: Reports system reviewed and no additional complaints, except as documented, Denies dizziness, Denies headache(s), Denies nasal congestion, Denies nasal discharge and Denies neck pain Cardiovascular: Cardiovascular: Reports no additional cardiovascular complaints, Denies chest pain, Denies leg edema and Reports dyspnea Respiratory: Respiratory: Reports no additional respiratory complaints, Reports cough and Reports dyspnea Gastrointestinal: Gastrointestinal: Reports no additional gastrointestinal complaints, Denies abdominal pain, Denies diarrhea, Denies nausea and Denies vomiting Genitourinary: Genitourinary: Reports no additional female genitourinary complaints and Denies urinary incontinence Musculoskeletal: Musculoskeletal: Reports no additional musculoskeletal complaints, Denies back pain, Denies arthralgias, Denies joint swelling, Denies neck pain, Denies numbness and Denies tingling Integumentary/Breasts: Skin/Breast: Reports system reviewed and no additional complaints, except as docu and Denies rash Neurologic: Reports system reviewed and no additional complaints, except as documented, Denies Abnormal speech present, Denies dizziness, Denies headache(s), Denies numbness, Denies tingling and Denies weakness PMFSH Past Medical History Attestation statement: The following information was validated with the patient. Source: old records reviewed and nursing notes reviewed Medical History No known health problems Social History Social History Patient Tobacco Use Status: Current everyday Tobacco user Advance Directives: No Advance Directives Information Provided: No Physical Exam Vital Signs: Vital Signs: Last Vital Signs Temp 98.8 F 10/18/23 23:39 Pulse 62 10/18/23 23:39 Resp 16 10/18/23 23:39 BP 147/76 H 10/18/23 23:39 Pulse Ox 98 10/18/23 23:39 O2 Del Method Room Air 10/18/23 23:39 BMI result Body Mass Index 47.2 Const: General: cooperative, healthy appearing, comfortable and no acute distress Orientation/consciousness: patient oriented x3 Limitations: no limitations HEENT: Head: Yes normal to inspection Ears: hearing grossly normal bilaterally General nose exam: Normal external nose present Face and sin us: Yes normal facial exam Mouth: Normal oral and palatal mucosa present Throat: Yes posterior oropharynx normal Eyes: General: appearance normal, both eyes and all related structures Pupils: Equal, round and reactive pupils present Neck: Neck: Yes normal visual inspection Chest: Chest palpation & inspection: normal inspection of the chest Resp: Effort & Inspection: normal respiratory effort Auscultation: clear to auscultation bilaterally Cardio: Rate: regular rate Rhythm: regular rhythm Peripheral pulses: Peripheral pulses 2+ throughout GI: Inspection: Yes normal to inspection Palpation (GI): Soft to palpation and nontender Auscultation: normal bowel sounds Back/Spine/Pelvis: Thoracic/Lumbar Spine: thoracic and lumbar spine normal to inspection Skin: General skin exam: no rashes or lesions noted Neuro: General: patient oriented x3, no focal motor deficits and normal sensat ion to monofilament Cranial nerves: Yes Equal, round and reactive pupils present Cognition (Neuro): normal cognition Speech: No Abnormal speech present Gait exam (Neuro): Normal gait present Motor exam (neuro): 5/5 motor strength present throughout Extrem: General: Yes normal to inspection, Yes no pedal edema and Yes no calf tenderness Medical Decision Making Medical Decision Making MDM Narrative: 28yo female who smokes cigarettes and has had several episodes of bronchitis here with complaints of cough, wheezing, shortness of breath x 2 days. No fevers, chills, leg swelling or leg pain, vomiting, diarrhea. No recent travel. No sick contact. No history of DVT/PE, no OCP use. Well-appearing. Mild expiratory wheezing. No leg swelling or leg pain. Reviewed viral testing from earlier today and chest x-ray which were unremarkable. Patient informed of results. Will treat with albuterol MDI and prednisone course Differential Diagnosis Differential Diagnoses: The differential diagnosis associated with the presentation includes Perc negative bronchitis, pna Admission/Observation Consideration of admission/observation: Escalation of care including admission/observation considered External Record Review External record reviewed: Prior outpatient labs and Prior outpatient radiology Tests considered The following testing was considered but not selected: perc --no need for cta Discharge Plan Discharge Clinical Impression: Bronchitis Patient Disposition: Home, Self-Care Instructions: Acute Bronchitis (ED) Additional Instructions: Start prednisone tomorrow Use the inhaler every 4 hours Prescriptions: New prednisone 20 mg tablet 60 mg PO DAILY Qty: 12 0RF No Action albuterol sulfate [Ventolin HFA] 90 mcg/actuation HFA aerosol inhaler 2 puff inhalation Q4-6H PRN (Reason: shortness of breath or wheezing) 30 Days Qty: 18 0RF doxycycline monohydrate 100 mg tablet 100 mg PO BID Qty: 20 0RF prednisone 20 mg tablet 40 mg PO DAILY Qty: 10 0RF fluticasone furoate 100 mcg/actuation blister with device 1 inh inhalation DAILY Qty: 30 0RF Rx Instructions: rinse mouth after use amoxicillin-pot clavulanate 875-125 mg tablet 1 tab PO BID 7 Days Qty: 14 0RF Referrals: Physician,Unknown J [Primary Care Provider] - 1 week
[2023-10-19] MEDS: predniSONE 20 MG TABLET 60 MG PO (00:28)
[2023-10-19] MEDS: Albuterol Sulfate 90 MCG 8 GM INHALER 2 PUFF INHALE (01:20)
[2023-10-19 01:28] VITALS: BP 135/73; PULSE 70; RESP 14; TEMP 37; O2SAT 98
== END 2023-10-19 01:29 | disposition home or self-care (01) ==
PROVIDERS: Emergency Provider Internal Medicine
DX: J40 Bronchitis, not specified as acute or chronic (principal); F17.210 Nicotine dependence, cigarettes, uncomplicated
CPT/HCPCS: 99283; 99284

== ENCOUNTER 2024-06-22 09:26 | Emergency (ER) | payer OTHER, SELFPAY ==
[2024-06-22 09:38] VITALS: BP 141/74; PULSE 79; RESP 16; TEMP 37; O2SAT 98; BMI 48.3
== END 2024-06-22 13:12 | disposition left against medical advice (07) ==
PROVIDERS: Emergency Provider Emergency Medicine Emergency Medical Services; PCP Internal Medicine
DX: M79.605 Pain in left leg (principal); Z53.21 Procedure and treatment not carried out due to patient leaving prior to being seen by health care provider
CPT/HCPCS: 99281

== ENCOUNTER 2024-07-10 19:12 | Emergency (ER) | payer OTHER, SELFPAY ==
--- NOTE | ~2024-07-10 | US_ITS ---
EXAMINATION: US PELVIS CLINICAL INFORMATION: Lower abdominal cramping COMPARISON: None available. TECHNIQUE: Ultrasound of the pelvis is performed using both transabdominal and transvaginal transducers along with Doppler. Transvaginal imaging is performed due to inadequate visualization transabdominally. FINDINGS: Uterus: The uterus is anteverted and measures 8.1 x 3.8 x 5.2 cm. The double wall endometrial thickness is 5 mm. IUD within the uterus. Heterogeneous cervix with multiple nabothian cysts. The uterus is smooth in contour and has normal myometrial echogenicity. No visible fibroid. Adnexa: Right ovary not visualized. There is normal color flow to the left adnexa. There is no left ovarian torsion. There is no pelvic ascites or fluid collection. Left ovary measures 2.6 x 2.1 x 1.8 cm. There are 2 cysts measuring 1.1 and 0.8 cm. US/US pelvic and transvaginal IMPRESSION: 1. IUD within the uterus. 2. Heterogeneous cervix with multiple nabothian cysts. 3. Left ovarian cysts. Electronically signed by: Nanette Petersen MD 07/10/2024 09:06 PM [id number]
[2024-07-10 19:31] VITALS: BP 143/78; PULSE 72; RESP 16; TEMP 36.6; O2SAT 100; BMI 49.7
--- NOTE | 2024-07-10 20:16 | ED_ITS ---
HPI - General Adult General Chief complaint: Vaginal Bleeding Stated complaint: cramping and bleeding Time Seen by Provider: 07/10/24 21:54 Source: patient Mode of arrival: ambulatory Limitations: no limitations History of Present Illness ED Provider: HPI narrative: Patient has been having lower abdominal pain for last 2 also noticed intermittent vaginal bleed seen boiler assistant operator last week when to have ultrasound comes here as she can not wait for 1 week for the ultrasound patient does have IUD placed which is been [address] and is in place per boiler assistant operator who did examine her last no urinary complaints no fever no chills no nausea no vomiting no diarrhea patient is obese Related Data Previous Rx's ?Medication ?Instructions ?Recorded Ventolin HFA 90 mcg/actuation 2 puff inhalation Q4-6H PRN 06/12/23 aerosol inhaler (albuterol sulfate) shortness of breath or wheezing 30 days #18 grams amoxicillin 875 mg-potassium 1 tab PO BID 7 days #14 tabs 06/12/23 clavulanate 125 mg tablet doxycycline monohydrate 100 mg 100 mg PO BID #20 tabs 06/17/23 tablet prednisone 20 mg tablet 40 mg (2 x 20 mg) PO DAILY #10 tabs 06/17/23 fluticasone furoate 100 1 inh inhalation DAILY #30 ea 07/10/23 mcg/actuation blister powder for inhalation prednisone 20 mg tablet 60 mg (3 x 20 mg) PO DAILY #12 tabs 10/19/23 ibuprofen 600 mg tablet 600 mg PO Q6H PRN fever or pain 07/10/24 #30 tabs Allergies Allergy/AdvReac Type Severity Reaction Status Date / Time dog dander [DOG] Allergy Mild SNEEZING Verified 07/10/24 19:33 WATER EYS, HIVES amoxicillin [From Augmentin] Allergy Rash Verified 07/10/24 19:33 clavulanic acid Allergy Rash Verified 07/10/24 19:33 [From Augmentin] Review of Systems 2 Review of Systems: Yes all other systems are reviewed and are negative PMFSH Past Medical History Medical History No known health problems Social History Social History Patient Tobacco Use Status: Current everyday Tobacco user Advance Directives: No Advance Directives Information Provided: No Do you have a plan to hurt others: No Plan Physical Exam ED Vital Signs: Vital Signs - 24 hr 07/10/24 19:31 Temperature 98 F Pulse Rate 72 Respiratory Rate 16 Blood Pressure 143/78 H Pulse Oximetry 100 Oxygen Delivery Method Room Air BMI result Body Mass Index 49.7 Appearance: Alert. Oriented X3. No acute distress. Obese Eyes: No pallor or ENT: Pharynx normal. Oral Mucosa moist Neck: Normal inspection. Neck supple. CVS: Normal heart rate and rhythm. Pulses normal. Respiratory: No respiratory distress. Equal air entry bilateral, no wheezing/rales/rhonchi Abdomen: Soft and mild deep discomfort right lower quadrant no rebound tenderness or guarding. Bowel sounds are present, no mass palpable, no CVA tenderness Skin: Skin warm and dry. Normal skin color. Normal skin turgor. Extremities: No lower extremity edema. No calf tenderness Neuro: Oriented X 3. No motor deficit. Course Course Course Narrative: This is an RME done by VANNA Ordonez: Additional HPI, ROS, PE not included below will be deferred to primary provider. 29-year-old female presents with severe lower abdominal cramping and bleeding for the past week or so she reports that she has an IUD and recently had it checked and it looked normal by her provider. She appears to have darker blood than usual which is what concerned her. Unclear when her last period was. She does not think she is . Medications Administered Discontinued Medications Generic Name Dose Route Start Last Admin Trade Name Freq PRN Reason Stop Dose Admin Ibuprofen 600 mg 07/10/24 22:13 07/10/24 22:33 Ibuprofen 600 Mg Tablet PO 07/10/24 22:14 600 mg ONCE ONE Administration Medical Decision Making Medical Decision Making [facility] Narrative: Patient with 2 weeks of abdominal pain ultrasound negative except the could not find the right ovary patient is advised to follow up with boiler assistant operator for further evaluation has small left ovarian cyst Differential Diagnosis Differential Diagnoses: The differential diagnosis associated with the presentation includes Lab Data [facility] Lab Attestation statement: I reviewed the patient's lab results. 07/10/24 20:44 07/10/24 20:44 Labs: Lab Results 07/10/24 07/10/24 Range/Units 20:44 22:52 WBC 6.4 (4.8-10.8) X10*3/uL RBC 4.30 (4.20-5.50) X10*6/uL Hgb 13.8 (12.0-16.0) g/dl Hct 39.2 (37.0-47.0) % MCV 91.2 (80.0-98.0) fL MCH 32.1 (27.0-33.0) pg MCHC 35.2 H (31.0-35.0) g/dl RDW 13.0 (11.0-16.0) % Plt Count 207 (160-400) X10*3/uL MPV 10.1 (9.4-12.3) fL Immature Gran % (Auto) 0.2 (0.0-0.4) % Neut % (Auto) 64.5 (45-73) % Lymph % (Auto) 24.3 (20-40) % [place] % (Auto) 7.1 (2-11) % Eos % (Auto) 3.3 (0-4) % Baso % (Auto) 0.6 (0-2) % Lymph # (Auto) 1.6 (1.2-4.9) X10*3/uL [place] # (Auto) 0.5 (0.1-1.2) X10*3/uL Eos # (Auto) 0.2 (0.0-0.4) X10*3/uL Baso # (Auto) 0.0 (0.0-0.2) X10*3/uL Abs Immat Gran (auto) 0.01 (0.00-0.03) X10*3/uL Absolute Neuts (auto) 4.1 (2.0-8.3) x10*3/uL Absolute Nucleated RBC 0.000 (0.0-0.012) X10*3/uL Nucleated RBC % (auto) 0.0 (0.0-0.2) /100WBC PT 11.6 (10.9-12.4) SEC INR 1.0 (0.9-1.1) Sodium 138 (135-145) mmol/L Potassium 3.8 (3.3-5.1) mmol/L Chloride 109 H (96-108) mmol/L Carbon Dioxide 22 (22-29) mmol/L Anion Gap 11 L (12-20) BUN 15 (9-16) mg/dL Creatinine 0.80 (0.5-1.4) mg/dL Estim Creat Clear Calc 157.1 Estimated GFR > 60 Random Glucose 91 (60-115) mg/dL Calcium 9.2 (8.4-10.2) mg/dL Magnesium 2.1 (1.6-2.6) mg/dL Total Bilirubin 0.3 (0.0-1.0) mg/dL AST 37 H (5-31) U/L ALT 50 H (0-31) U/L Alkaline Phosphatase 92 (39-117) U/L Total Protein 7.5 (6.5-8.0) g/dL Albumin 4.1 (3.5-5.0) g/dL Beta HCG, Quant < 2 mIU/mL Urine Color Yellow Urine Appearance Clear Urine pH 6.0 (5.0-9.0) Ur Specific [place] 1.015 (1.005-1.025) Urine Protein Negative (Neg-Trace) mg/dL Urine Glucose (UA) Negative (Negative) mg/dL Urine Ketones Negative (Negative) mg/dL Urine Blood Negative (Negative) Urine Nitrite Negative (Negative) Ur Leukocyte Esterase Negative (Negative) Blood Type O Positive Independent Interpretation I performed an independent interpretation of an: Ultrasound Radiology Impression Discussion of test interpretation with radiology: I have reviewed the radiologist's reading. Radiologist Impression: [place] [id number] Ultrasound Report Signed Patient: Sheba Pinto MR#: [id number] : 1995 Acct:[id number] Age/Sex: 29 / F ADM Date: 07/10/24 Loc: .ED Attending Dr: Ordering Physician: Stanford Ordonez Date of Service: 07/10/24 Procedure(s): US pelvic and transvaginal Accession Number(s): [id number] cc: Stanford Ordonez; Pedro Pantoja MD~ EXAMINATION: US PELVIS CLINICAL INFORMATION: Lower abdominal cramping COMPARISON: None available. TECHNIQUE: Ultrasound of the pelvis is performed using both transabdominal and transvaginal transducers along with Doppler. Transvaginal imaging is performed due to inadequate visualization transabdominally. FINDINGS: Uterus: The uterus is anteverted and measures 8.1 x 3.8 x 5.2 cm. The double wall endometrial thickness is 5 mm. IUD within the uterus. Heterogeneous cervix with multiple nabothian cysts. The uterus is smooth in contour and has normal myometrial echogenicity. No visible fibroid. Adnexa: Right ovary not visualized. There is normal color flow to the left adnexa. There is no left ovarian torsion. There is no pelvic ascites or fluid collection. Left ovary measures 2.6 x 2.1 x 1.8 cm. There are 2 cysts measuring 1.1 and 0.8 cm. US/US pelvic and transvaginal IMPRESSION: 1. IUD within the uterus. 2. Heterogeneous cervix with multiple nabothian cysts. 3. Left ovarian cysts. Electronically signed by: Nanette Petersen MD 07/10/2024 09:06 PM [facility] [place] Discharge Plan Discharge Clinical Impression: Dysfunctional uterine bleeding, Pelvic pain in female Patient Disposition: Home, Self-Care Instructions: Dysfunctional Uterine Bleeding (ED), Pelvic Pain in Women (ED) Additional Instructions: Cause of pelvic pain is not clear unable to see the right ovary Follow up with your boiler assistant operator for repeat ultrasound if needed and further management Ibuprofen for pain Prescriptions: New ibuprofen 600 mg tablet 600 mg PO Q6H PRN (Reason: fever or pain) Qty: 30 0RF No Action albuterol sulfate [Ventolin HFA] 90 mcg/actuation HFA aerosol inhaler 2 puff inhalation Q4-6H PRN (Reason: shortness of breath or wheezing) 30 Days Qty: 18 0RF doxycycline monohydrate 100 mg tablet 100 mg PO BID Qty: 20 0RF prednisone 20 mg tablet 40 mg PO DAILY Qty: 10 0RF fluticasone furoate 100 mcg/actuation blister with device 1 inh inhalation DAILY Qty: 30 0RF Rx Instructions: rinse mouth after use prednisone 20 mg tablet 60 mg PO DAILY Qty: 12 0RF amoxicillin-pot clavulanate 875-125 mg tablet 1 tab PO BID 7 Days Qty: 14 0RF Print Language: Georgian
[2024-07-10 20:49] LABS: MANUAL DIFF FLAG NO
[2024-07-10 20:50] LABS: Basophils Percent Auto 0.6 % (0-2); Eosinophils Absolute Auto 0.2 X10*3/uL (0.0-0.4); Eosinophils Percent Auto 3.3 % (0-4); Hematocrit 39.2 % (37.0-47.0); Hemoglobin 13.8 g/dl (12.0-16.0); Imm Gran Abs Auto 0.01 X10*3/uL (0.00-0.03); Imm Gran Pct Auto 0.2 % (0.0-0.4); Lymphocytes Absolute Auto 1.6 X10*3/uL (1.2-4.9); Lymphocytes Percent Auto 24.3 % (20-40); Mean Corpuscular HGB Conc 35.2 g/dl (31.0-35.0); Mean Corpuscular Hemoglobin 32.1 pg (27.0-33.0); Mean Corpuscular Volume 91.2 fL (80.0-98.0); Mean Platelet Volume 10.1 fL (9.4-12.3); Monocytes Absolute Auto 0.5 X10*3/uL (0.1-1.2); Monocytes Percent Auto 7.1 % (2-11); Neutrophils Absolute Auto 4.1 x10*3/uL (2.0-8.3); Neutrophils Percent Auto 64.5 % (45-73); Platelet Count 207 X10*3/uL (160-400); White Blood Count 6.4 X10*3/uL (4.8-10.8)
[2024-07-10 20:55] LABS: Prothrombin Time 11.6 SEC (10.9-12.4)
[2024-07-10 21:10] LABS: Alanine Aminotransferase 50 U/L (0-31); Albumin Level 4.1 g/dL (3.5-5.0); Alkaline Phosphatase 92 U/L (39-117); Anion Gap 11 (12-20); Aspartate Amino Transferase 37 U/L (5-31); Bilirubin Total 0.3 mg/dL (0.0-1.0); Blood Urea Nitrogen 15 mg/dL (9-16); Calcium 9.2 mg/dL (8.4-10.2); Carbon Dioxide 22 mmol/L (22-29); Chloride 109 mmol/L (96-108); Creatinine Clr Calc Pharmacy 157.1; Estimated Glomerular Filt Rate > 60; Glucose Random 91 mg/dL (60-115); Magnesium 2.1 mg/dL (1.6-2.6); Potassium 3.8 mmol/L (3.3-5.1); Sodium 138 mmol/L (135-145); Total Protein 7.5 g/dL (6.5-8.0)
[2024-07-10 21:11] LABS: HCG Quantitative < 2 mIU/mL
[2024-07-10] MEDS: Ibuprofen 600 MG TABLET PO (22:33)
[2024-07-10 23:05] LABS: Appearance Urine Clear; Color Urine Yellow; Glucose Urine UA Negative (Negative); Leukocyte Esterase Urine Negative (Negative); Nitrite Urine Negative (Negative); Specific Gravity - Urine 1.015 (1.005-1.025); Urine Blood Negative (Negative); Urine Ketones Negative (Negative); Urine Protein Negative (Neg-Trace)
[2024-07-10 23:11] VITALS: BP 143/78; PULSE 72; RESP 16; TEMP 36.6; O2SAT 100
== END 2024-07-10 23:13 | disposition home or self-care (01) ==
PROVIDERS: Physician Assistant; Emergency Provider Internal Medicine; PCP Internal Medicine
DX: N93.8 Other specified abnormal uterine and vaginal bleeding (principal); R10.2 Pelvic and perineal pain
CPT/HCPCS: 36415; 76830; 76856; 80053; 81003; 83735; 84702; 85025; 85610; 86900; 86901; 99283; 99284

== ENCOUNTER 2024-10-28 09:34 | Emergency (ER) | payer OTHER, SELFPAY ==
--- NOTE | ~2024-10-28 | CT_ITS ---
EXAMINATION: CT ABDOMEN AND PELVIS WITHOUT CONTRAST CLINICAL INFORMATION: Right flank pain. Hematuria. COMPARISON: October 07, 2018. TECHNIQUE: Multidetector volumetric imaging was performed from the superior aspect of the liver through the pubic symphysis. Sagittal and coronal reformatted images were obtained on the technologist's workstation. This CT examination was performed using dose optimization techniques as appropriate, variously including the following: *Automated exposure control *Adjustment of mA and/or kV according to patient size (this includes techniques or standardized protocols for targeted exams where dose is matched to indication/reason for exam; i.e. extremities or head) *Use of iterative reconstruction technique. DLP: 1143 mGy centimeter. FINDINGS: Limited evaluation of the intra-abdominal organs and vascular structures due to lack of IV contrast. LUNG BASES: No acute airspace disease. No gross pulmonary nodules. LIVER, GALLBLADDER, AND BILIARY TREE: Liver measures 22 cm. No pericholecystic fluid collection or gallbladder wall thickening. No intrahepatic or extrahepatic biliary ductal dilatation. PANCREAS: No peripancreatic fluid collection. No main pancreatic ductal dilatation. SPLEEN: 10 cm. ADRENAL GLANDS: No nodular lesions. KIDNEYS AND URETERS: Right kidney: No hydronephrosis. No nephrolithiasis. Left kidney: No hydronephrosis. No nephrolithiasis. 6 mm exophytic hyperdensity in the upper pole which measures 23 Hounsfield units. BLADDER: Fluid-filled. GASTROINTESTINAL TRACT: No intestinal obstruction pattern. Appendix is normal. No ascites. No pneumatosis intestinalis. No pneumoperitoneum. ABDOMINAL WALL: No gross umbilical hernia. LYMPH NODES: No lymphadenopathy, mesenteric or retroperitoneal. VASCULAR: No aneurysm, abdominal aorta. PELVIC VISCERA: T-shaped, Intrauterine contraceptive device. OSSEOUS STRUCTURES: Sclerosis and the sacroiliac joints bilaterally. Multilevel lower thoracic spondylosis. Spondylolysis pars interarticularis of L4-[address]/CT abdomen pelvis wo IV con IMPRESSION: No hydronephrosis or nephrolithiasis. 6 mm complex cystic lesion upper pole left kidney. Hepatomegaly. 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 Fleischner guidelines were followed. Electronically signed by: Marco Sommers MD 10/28/2024 11:55 AM EDT
--- NOTE | ~2024-10-28 | US_ITS ---
EXAMINATION: US ABDOMEN LIMITED CLINICAL INFORMATION: Right upper quadrant tenderness.. COMPARISON: Correlation made with CT abdomen and pelvis performed earlier same day. TECHNIQUE: Real-time imaging of the right upper quadrant abdominal viscera. FINDINGS: PANCREAS: Visualized portions are unremarkable. LIVER: Liver is mildly enlarged, with right hepatic lobe measuring 21.6 cm. The liver contour is normal. There is diffuse mildly increased liver parenchymal echogenicity, consistent with hepatic steatosis. No focal hepatic lesion. There is no intrahepatic biliary duct dilatation seen. GALLBLADDER: The gallbladder is physiologically distended without evidence of stones, sludge, polyps, wall thickening or pericholecystic fluid. COMMON BILE DUCT: Normal in caliber measuring 0.4 cm in diameter. RIGHT KIDNEY: Mild fullness of the collecting system without gross hydronephrosis. Mild fullness of the proximal right ureter. No renal calculi or focal parenchymal lesions. The kidney measures 11.0 cm in maximum dimension. FREE FLUID: None. US/US abdomen limited IMPRESSION: 1. Mild fullness of the right renal collecting system and proximal right ureter. Review of the CT examination of earlier same day demonstrates a tiny 2 mm calculus within the right proximal ureter, with mild right periureteric stranding (refer to sagittal series 6, image 74). 2. Mild hepatic steatosis with mild hepatomegaly. No suspicious lesion. 3. Normal gallbladder and bile ducts. Electronically signed by: Carlos Reinoso MD 10/28/2024 01:03 PM EDT
[2024-10-28 09:40] VITALS: BP 129/85; PULSE 70; RESP 19; O2SAT 98; BMI 48.3
[2024-10-28 10:32] LABS: MANUAL DIFF FLAG NO
[2024-10-28 10:36] LABS: Appearance Urine Clear; Color Urine Yellow; Glucose Urine UA Negative (Negative); Leukocyte Esterase Urine Negative (Negative); Nitrite Urine Negative (Negative); PH 7.5 (5.0-9.0); UMIC TRIGGER UACC YES; Urine Blood Moderate (2+) (Negative); Urine Ketones Negative (Negative); Urine Protein Negative (Neg-Trace)
[2024-10-28 10:38] LABS: Basophils Percent Auto 0.5 % (0-2); Eosinophils Absolute Auto 0.2 X10*3/uL (0.0-0.4); Eosinophils Percent Auto 2.9 % (0-4); Hematocrit 40.8 % (37.0-47.0); Hemoglobin 13.9 g/dl (12.0-16.0); Imm Gran Abs Auto 0.02 X10*3/uL (0.00-0.03); Imm Gran Pct Auto 0.4 % (0.0-0.4); Lymphocytes Absolute Auto 1.1 X10*3/uL (1.2-4.9); Lymphocytes Percent Auto 19.9 % (20-40); Mean Corpuscular HGB Conc 34.1 g/dl (31.0-35.0); Mean Corpuscular Hemoglobin 31.4 pg (27.0-33.0); Mean Corpuscular Volume 92.1 fL (80.0-98.0); Mean Platelet Volume 10.1 fL (9.4-12.3); Monocytes Absolute Auto 0.4 X10*3/uL (0.1-1.2); Monocytes Percent Auto 6.5 % (2-11); Neutrophils Absolute Auto 3.9 x10*3/uL (2.0-8.3); Neutrophils Percent Auto 69.8 % (45-73); Platelet Count 222 X10*3/uL (160-400); Red Blood Count 4.43 X10*6/uL (4.20-5.50); Red Cell Distribution Width 13.2 % (11.0-16.0); White Blood Count 5.5 X10*3/uL (4.8-10.8)
--- NOTE | 2024-10-28 10:38 | ED_ITS ---
HPI - General Adult General Chief complaint: Back Pain/Injury Stated complaint: L back pain Time Seen by Provider: 10/28/24 10:38 Source: patient, RN notes reviewed and old records reviewed Mode of arrival: ambulatory Limitations: no limitations History of Present Illness ED Provider: Joseline HPI narrative: Patient is a 29-year-old female with no reported past medical history presenting to the emergency department with complaint of right flank pressure for the past year. States it is not necessarily painful, but increases with palpation of the area as well as palpation of her right upper quadrant. Denies fevers. Denies nausea or vomiting. Reports occasional constipation. Denies urinary symptoms. States that she was googling her symptoms and is concerned for a renal or biliary etiology. MD complaint: right flank pain Onset (ago): year(s) Related Data Previous Rx's ?Medication ?Instructions ?Recorded Ventolin HFA 90 mcg/actuation 2 puff inhalation Q4-6H PRN 06/12/23 aerosol inhaler (albuterol sulfate) shortness of breath or wheezing 30 days #18 grams amoxicillin 875 mg-potassium 1 tab PO BID 7 days #14 tabs 06/12/23 clavulanate 125 mg tablet doxycycline monohydrate 100 mg 100 mg PO BID #20 tabs 06/17/23 tablet prednisone 20 mg tablet 40 mg (2 x 20 mg) PO DAILY #10 tabs 06/17/23 fluticasone furoate 100 1 inh inhalation DAILY #30 ea 07/10/23 mcg/actuation blister powder for inhalation prednisone 20 mg tablet 60 mg (3 x 20 mg) PO DAILY #12 tabs 10/19/23 ibuprofen 600 mg tablet 600 mg PO Q6H PRN fever or pain 07/10/24 #30 tabs morphine 15 mg immediate release 15 mg PO Q8H PRN severe pain 10/28/24 tablet (scale score 7-10) #6 tabs naproxen 500 mg tablet 500 mg PO BID #30 tabs 10/28/24 ondansetron 4 mg disintegrating 4 mg PO Q8H PRN nausea and 10/28/24 tablet vomiting #10 tabs prednisone 20 mg tablet 20 mg PO DAILY #7 tabs 10/28/24 tamsulosin 0.4 mg capsule 0.4 mg PO DAILY #14 caps 10/28/24 Allergies Allergy/AdvReac Type Severity Reaction Status Date / Time dog dander [DOG] Allergy Mild SNEEZING Verified 10/28/24 09:44 WATER EYS, HIVES amoxicillin [From Augmentin] Allergy Rash Verified 10/28/24 09:44 clavulanic acid Allergy Rash Verified 10/28/24 09:44 [From Augmentin] Review of Systems 2 Review of Systems: as per hpi Yes all other systems are reviewed and are negative Constitutional: Constitutional: Reports as per [facility]PI [facility] Past Medical History Medical History No known health problems Social History Social History Patient Tobacco Use Status: Current everyday Tobacco user Advance Directives: No Advance Directives Information Provided: No Do you have a plan to hurt others: No Plan Patient : No Physical Exam ED Vital Signs: Vital Signs - 24 hr 10/28/24 09:40 10/28/24 10:56 Temperature 98.3 F Pulse Rate 70 81 Respiratory Rate 19 18 Blood Pressure 129/85 120/76 Pulse Oximetry 98 98 Oxygen Delivery Method Room Air BMI result Body Mass Index 48.3 Vital signs have been reviewed and appear to be correct. Blood pressure normal. Heart rate normal. Respiratory rate normal. Temperature normal. Oxygen saturation normal. Const General: cooperative, healthy appearing and no acute distress Orientation/consciousness: oriented to person, oriented to place, oriented to time and patient oriented x3 Limitations: no limitations HENMT Head: Yes normocephalic and Yes atraumatic Ears: external ears normal General nose exam: Normal external nose present Face and sinus: Yes face symmetric Mouth: oropharynx normal and moist mucous membranes Throat: Yes uvula midline Eyes Pupils: Equal, round and reactive pupils present Neck Neck: Yes normal visual inspection and Yes supple Resp Effort & Inspection: normal respiratory effort and able to speak in complete sentences Auscultation: clear to auscultation bilaterally Cardio Rate: regular rate Rhythm: regular rhythm Heart sounds: S1 normal heart sound present and S2 normal heart sound present GI Other: reports increased pressure to right flank with palpation of RUQ of abdomen Palpation (GI): Soft to palpation and nontender Auscultation: normoactive bowel sounds General: Yes CVA tenderness on the right Back/Spine/Pelvis Back: CVA tenderness Skin General skin exam: elasticity normal and turgor normal Neuro General: oriented to person, oriented to place, oriented to time, patient oriented x3, moves all extremities, no focal motor deficits and CN's II-XI intact bilaterally Cranial nerves: Yes Equal, round and reactive pupils present Cognition (Neuro): normal cognition Extrem General: Yes full ROM, Yes no pedal edema and Yes no calf tenderness Psych Mental Status: mental status grossly normal Affect: normal affect Thought process: Normal thought process present Medical Decision Making Medical Decision Making [facility] Narrative: Patient is a 29-year-old female with no reported past medical history presenting to the emergency department with complaint of right flank pressure for the past year. On exam patient is awake, A+Ox3, VS WNL, afebrile, normal neurological exam without focal deficits, physical exam findings as above. Given reported symptoms and physical exam findings, initial differential includes but is not limited to renal colic, hydronephrosis, ureteral calculi, UTI/pyelonephritis, biliary colic, choledocholithiasis, sludge. Labs notable for no leukocytosis, mild transaminitis with normal T bili and direct bilirubin. UA notable for 2+ blood. CT notable for 6mm complex cyst L kidney, hepatomegaly. U/S notable for 2mm calculi proximal R ureter with mild fullness of the renal collecting system. My interpretation is in agreement with the radiologist's interpretation. Results discussed with patient and all questions answered. Will refer patient to urology and GI. Will discharge patient home on course of prednisone, Flomax, Zofran, and morphine for severe pain as well as naproxen. Return precautions discussed. Advised patient to follow up with PCP as well. Patient verbalized understanding of and agreement with plan. Differential Diagnosis Differential Diagnoses: The differential diagnosis associated with the presentation includes as per [facility] Lab Data [facility] Lab Attestation statement: I reviewed the patient's lab results. As per [facility] 10/28/24 09:56 10/28/24 09:56 Labs: Lab Results 10/28/24 Range/Units 09:56 WBC 5.5 (4.8-10.8) X10*3/uL RBC 4.43 (4.20-5.50) X10*6/uL Hgb 13.9 (12.0-16.0) g/dl Hct 40.8 (37.0-47.0) % MCV 92.1 (80.0-98.0) fL MCH 31.4 (27.0-33.0) pg MCHC 34.1 (31.0-35.0) g/dl RDW 13.2 (11.0-16.0) % Plt Count 222 (160-400) X10*3/uL MPV 10.1 (9.4-12.3) fL Immature Gran % (Auto) 0.4 (0.0-0.4) % Neut % (Auto) 69.8 (45-73) % Lymph % (Auto) 19.9 L (20-40) % [place] % (Auto) 6.5 (2-11) % Eos % (Auto) 2.9 (0-4) % Baso % (Auto) 0.5 (0-2) % Lymph # (Auto) 1.1 L (1.2-4.9) X10*3/uL [place] # (Auto) 0.4 (0.1-1.2) X10*3/uL Eos # (Auto) 0.2 (0.0-0.4) X10*3/uL Baso # (Auto) 0.0 (0.0-0.2) X10*3/uL Abs Immat Gran (auto) 0.02 (0.00-0.03) X10*3/uL Absolute Neuts (auto) 3.9 (2.0-8.3) x10*3/uL Absolute Nucleated RBC 0.000 (0.0-0.012) X10*3/uL Nucleated RBC % (auto) 0.0 (0.0-0.2) /100WBC Sodium 136 (135-145) mmol/L Potassium 4.1 (3.3-5.1) mmol/L Chloride 109 H (96-108) mmol/L Carbon Dioxide 23 (22-29) mmol/L Anion Gap 8 L (12-20) BUN 12 (9-16) mg/dL Creatinine 0.69 (0.5-1.4) mg/dL Estim Creat Clear Calc 179.1 Estimated GFR > 60 Random Glucose 94 (60-115) mg/dL Calcium 9.1 (8.4-10.2) mg/dL Total Bilirubin 0.8 (0.0-1.0) mg/dL Direct Bilirubin 0.3 (0.0-0.5) mg/dL AST 34 H (5-31) U/L ALT 43 H (0-31) U/L Alkaline Phosphatase 85 (39-117) U/L Total Protein 7.3 (6.5-8.0) g/dL Albumin 4.0 (3.5-5.0) g/dL Lipase 16 (8-78) U/L Urine Color Yellow Urine Appearance Clear Urine pH 7.5 (5.0-9.0) Ur Specific [place] 1.020 (1.005-1.025) Urine Protein Negative (Neg-Trace) mg/dL Urine Glucose (UA) Negative (Negative) mg/dL Urine Ketones Negative (Negative) mg/dL Urine Blood Moderate (2+) H (Negative) Urine Nitrite Negative (Negative) Ur Leukocyte Esterase Negative (Negative) Urine RBC 6-10 H (0-2) /HPF Urine WBC 0-5 (0-5) /HPF Ur Squamous Epith Cells 3-5 (0-2) /HPF Urine Bacteria 1+ (None Seen) Hyaline Casts 0-2 (0-2) /LPF Urine Test NEGATIVE (NEGATIVE) Independent Interpretation I performed an independent interpretation of an: Ultrasound and CT Scan Interpretation: CT notable for 6mm complex cyst L kidney, hepatomegaly. U/S notable for 2mm calculi proximal R ureter with mild fullness of the renal collecting system. Radiology Impression Discussion of test interpretation with radiology: I have reviewed the radiologist's reading. Radiologist Impression: US/US abdomen limited IMPRESSION: 1. Mild fullness of the right renal collecting system and proximal right ureter. Review of the CT examination of earlier same day demonstrates a tiny 2 mm calculus within the right proximal ureter, with mild right periureteric stranding (refer to sagittal series 6, image 74). 2. Mild hepatic steatosis with mild hepatomegaly. No suspicious lesion. 3. Normal gallbladder and bile ducts. CT/CT abdomen pelvis wo IV con IMPRESSION: No hydronephrosis or nephrolithiasis. 6 mm complex cystic lesion upper pole left kidney. Hepatomegaly. 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 External Record Review External record reviewed: Inpatient record, Office record and Outpatient record Prescription Management I considered prescription management with: Pain Medication and Other Discharge Plan Discharge Clinical Impression: Calculi, ureter Patient Disposition: Home, Self-Care Instructions: Renal Colic (ED), Ureteral Stones (ED) Additional Instructions: You were evaluated in the emergency department for flank pain. Your ultrasound and CT scan showed evidence of a stone in your right ureter. The stone is 2mm which may or may not pass on its own. Your are being provided with a urine strainer to use at home, instructions are included in your discharge paperwork. You are being prescribed prednisone to decrease inflammation, tamsulosin to allow the stone to pass more easily, naproxen to decrease inflammation and morphine as needed for severe pain. You are being prescribed ondansetron which you can use every 8 hours as needed for nausea. You are being referred to Urology, please call them 1st thing Saturday morning for an appointment this week. We are also referring you to the powerhouse mechanic supervisor for further evaluation of your hepatic steatosis. Return to the emergency department if you develop worsening pain, persistent vomiting, fever 100.4? or greater, inability to urinate, or any other concerning symptoms. Prescriptions: New ondansetron 4 mg tablet,disintegrating 4 mg PO Q8H PRN (Reason: nausea and vomiting) Qty: 10 0RF prednisone 20 mg tablet 20 mg PO DAILY Qty: 7 0RF tamsulosin 0.4 mg capsule 0.4 mg PO DAILY Qty: 14 0RF naproxen 500 mg tablet 500 mg PO BID Qty: 30 0RF morphine 15 mg tablet 15 mg PO Q8H PRN (Reason: severe pain (scale score 7-10)) Qty: 6 0RF Rx Instructions: Partial Fill upon patient request. No Action albuterol sulfate [Ventolin HFA] 90 mcg/actuation HFA aerosol inhaler 2 puff inhalation Q4-6H PRN (Reason: shortness of breath or wheezing) 30 Days Qty: 18 0RF doxycycline monohydrate 100 mg tablet 100 mg PO BID Qty: 20 0RF prednisone 20 mg tablet 40 mg PO DAILY Qty: 10 0RF fluticasone furoate 100 mcg/actuation blister with device 1 inh inhalation DAILY Qty: 30 0RF Rx Instructions: rinse mouth after use prednisone 20 mg tablet 60 mg PO DAILY Qty: 12 0RF ibuprofen 600 mg tablet 600 mg PO Q6H PRN (Reason: fever or pain) Qty: 30 0RF amoxicillin-pot clavulanate 875-125 mg tablet 1 tab PO BID 7 Days Qty: 14 0RF Referrals: [facility] Gastroenterology Services [Provider Group] (hepatic steatosis, mild hepatomegaly) [facility] Urology Services [Provider Group] - 1 week (2mm calculi proximal R ureter) Print Language: Yi
[2024-10-28 10:39] LABS: Bacteria Urine 1+ (None Seen); Hyaline Casts Urine 0-2 /LPF (0-2); UPreg QC Valid YES; Urine Pregnancy NEGATIVE (NEGATIVE); WBC Urine 0-5 /HPF (0-5)
--- NOTE | 2024-10-28 10:53 | PC.NURSE ---
Report recieved from MARSHA Fleming. Taken over care at this time.
[2024-10-28 10:56] VITALS: BP 120/76; PULSE 81; RESP 18; TEMP 36.8; O2SAT 98
[2024-10-28 11:11] LABS: Alanine Aminotransferase 43 U/L (0-31); Alkaline Phosphatase 85 U/L (39-117); Anion Gap 8 (12-20); Aspartate Amino Transferase 34 U/L (5-31); Bilirubin Direct 0.3 mg/dL (0.0-0.5); Bilirubin Total 0.8 mg/dL (0.0-1.0); Blood Urea Nitrogen 12 mg/dL (9-16); Calcium 9.1 mg/dL (8.4-10.2); Carbon Dioxide 23 mmol/L (22-29); Chloride 109 mmol/L (96-108); Creatinine Clr Calc Pharmacy 179.1; Estimated Glomerular Filt Rate > 60; Glucose Random 94 mg/dL (60-115); Lipase 16 U/L (8-78); Potassium 4.1 mmol/L (3.3-5.1); Sodium 136 mmol/L (135-145); Total Protein 7.3 g/dL (6.5-8.0)
== END 2024-10-28 14:07 | disposition home or self-care (01) ==
PROVIDERS: Emergency Provider Emergency Medicine; PCP Internal Medicine
DX: N13.2 Hydronephrosis with renal and ureteral calculous obstruction (principal); R10.11 Right upper quadrant pain; Z79.899 Other long term (current) drug therapy
CPT/HCPCS: 36415; 74176; 76705; 80048; 80076; 81001; 81025; 83690; 85025; 99284

== ENCOUNTER → 2024-10-28 11:13 | Outpatient (BNV) | payer OTHER, SELFPAY | PROVIDERS: Emergency Provider Emergency Medicine; PCP Internal Medicine; Visit Provider Radiology Diagnostic Radiology | DX: N20.0 Calculus of kidney (principal); K76.0 Fatty (change of) liver, not elsewhere classified; R16.0 Hepatomegaly, not elsewhere classified | CPT/HCPCS: 74176; 76705 ==

== ENCOUNTER 2024-12-29 09:48 | Emergency (ER) | payer OTHER, SELFPAY ==
--- NOTE | ~2024-12-29 | CT_ITS ---
EXAMINATION: CT ABDOMEN PELVIS WITH IV CONTRAST HISTORY: Right flank/upper abdominal pain COMPARISON: Comparison is made with the prior examination dated 10/28/2024. TECHNIQUE: CT scan of the abdomen and pelvis was performed following administration of 85 mL Omnipaque 350 using standard departmental protocol. Coronal and sagittal reformatted images were generated and reviewed. Oral contrast material was not administered at the request of the referring physician. This CT exam was performed with one or more of the following dose reduction techniques: automated exposure control, adjustment of the mA and/or kV according to patient size, use of iterative reconstruction technique. DLP: 1120 mGy-cm FINDINGS: LOWER CHEST: Again seen is a 2 mm nodule at the left lung base. The visualized right lung base is clear. There is no pleural effusion. CARDIOVASCULATURE: The heart is normal in size. There is no pericardial effusion. LIVER: The liver is enlarged and demonstrates diffusely decreased attenuation, consistent with steatosis. No liver mass is identified. The hepatic and portal veins are patent. GALLBLADDER / BILE DUCTS: The gallbladder is unremarkable. There is no intra or extrahepatic biliary ductal dilatation. SPLEEN: The spleen is normal in size. No focal splenic lesion is identified. PANCREAS: The pancreas is unremarkable in appearance. ADRENAL GLANDS: Within normal limits. KIDNEYS/RETROPERITONEUM: No renal calculi are identified. There is no hydronephrosis. There is a 10 mm probable cyst at the lower pole of the right kidney. Again seen is a subcentimeter exophytic slightly hyperdense lesion at the upper pole of the left kidney. LYMPH NODES: No abdominal or pelvic lymphadenopathy. VASCULATURE: The abdominal aorta is normal in caliber. MESENTERY/PERITONEUM: No free fluid. No masses. There is no free intraperitoneal gas. STOMACH: The stomach is collapsed, limiting evaluation. SMALL BOWEL: The small bowel is normal in caliber. COLON: The colon is unremarkable. APPENDIX: Normal. URINARY BLADDER/PELVIC ORGANS: The urinary bladder is unremarkable. IUD is again noted in the uterus. The IUD is positioned in the sagittal plane with the arms extending into the myometrium. There is a 2.8 cm right ovarian cyst versus follicle.. BONES / SOFT TISSUES: No suspicious bony or soft tissue abnormalities. CT/CT abdomen pelvis w IV con IMPRESSION: 1. Hepatomegaly and hepatic steatosis. 2. No acute inflammatory process is identified. Incidental findings as discussed above. Electronically signed by: Luis Mario MD 12/29/2024 01:32 PM EDT RP
--- NOTE | ~2024-12-29 | US_ITS ---
EXAMINATION: US TRIPLEX LOWER EXTREMITY, RIGHT CLINICAL INFORMATION: Pain, right lower extremity COMPARISON: None available. TECHNIQUE: Color-flow triplex imaging with spectral analysis and compression Doppler were performed on the right lower extremity. FINDINGS: Respiratory variation, normal compression and augmented flow are demonstrated throughout the interrogated common femoral vein, superficial femoral vein, profunda femoral vein, popliteal vein and midcalf peroneal and posterior tibial venous segments . There is no Olsen's cyst. US/US venous duplex LE RT IMPRESSION: No acute deep venous thrombosis interrogated veins, right lower extremity. Negative for DVT. Electronically signed by: Marco Sommers MD 12/29/2024 02:07 PM EDT
--- NOTE | ~2024-12-29 | CT_ITS ---
EXAMINATION: CT ANGIOGRAM CHEST CLINICAL INFORMATION: Right-sided rib pain, rule out PE. COMPARISON: None available. TECHNIQUE: Multiple axial images were obtained through the chest after the administration of 50 mL of Omnipaque 350 intravenous contrast. Extensive vascular post-processing including two-dimensional and three-dimensional reformatted images were created and reviewed on an independent workstation. This CT examination was performed using dose optimization techniques as appropriate, variously including the following: *Automated exposure control *Adjustment of mA and/or kV according to patient size (this includes techniques or standardized protocols for targeted exams where dose is matched to indication/reason for exam; i.e. extremities or head) *Use of iterative reconstruction technique FINDINGS: VASCULAR: There is no evidence of pulmonary embolus. The main pulmonary artery is normal in caliber. There is no right heart strain are reflux of contrast into the IVC. The aorta is normal in caliber and course without evidence of acute aortic syndrome. The heart size is normal. No pericardial effusion. The great vessels are patent. LUNGS: The lungs are clear. No consolidations or abnormal opacities. Mild thickening of the small airways is present, concern for mild inflammatory airways disease. No pleural effusion or pneumothorax. No suspicious nodules. MEDIASTINUM: Partially imaged thyroid is normal. Residual thymus in the anterior superior mediastinum. No esophageal abnormality. No adenopathy. CHEST WALL/AXILLA: Normal. IMAGED UPPER ABDOMINAL CONTENTS: Mild diffuse fatty infiltration of the liver. OSSEOUS STRUCTURES: No fracture or suspicious bone lesion. Mild degenerative spinal changes with Schmorl's nodes in the endplates. CT/CT angio chest PE protocol IMPRESSION: 1. No evidence of pulmonary embolus. No evidence of acute aortic syndrome. 2. The lungs are clear bilaterally. No pneumonic consolidation or effusion. 3. There is mild thickening of the small airways suggesting inflammatory airways disease. 4. There is no acute osseous abnormality. 5. There is diffuse fatty infiltration of the liver. Electronically signed by: Carlos Reinoso MD 12/29/2024 01:24 PM EDT
[2024-12-29 09:50] VITALS: BP 118/78; PULSE 86; RESP 18; TEMP 36.6; O2SAT 95; BMI 47.8
[2024-12-29 10:19] LABS: MANUAL DIFF FLAG NO
[2024-12-29 10:20] LABS: Appearance Urine Clear; Color Urine Yellow; Glucose Urine UA Negative (Negative); Leukocyte Esterase Urine Negative (Negative); Nitrite Urine Negative (Negative); PH 6.5 (5.0-9.0); Specific Gravity - Urine <= 1.005 (1.005-1.025); Urine Blood Negative (Negative); Urine Ketones Negative (Negative); Urine Protein Negative (Neg-Trace)
[2024-12-29 10:21] LABS: UPreg QC Valid YES; Urine Pregnancy NEGATIVE (NEGATIVE)
[2024-12-29 10:23] VITALS: BP 118/78; PULSE 86; RESP 18; TEMP 36.6; O2SAT 95
[2024-12-29 10:24] LABS: Basophils Absolute Auto 0.1 X10*3/uL (0.0-0.2); Basophils Percent Auto 0.8 % (0-2); Eosinophils Absolute Auto 0.1 X10*3/uL (0.0-0.4); Eosinophils Percent Auto 2.2 % (0-4); Hematocrit 42.1 % (37.0-47.0); Hemoglobin 14.5 g/dl (12.0-16.0); Imm Gran Abs Auto 0.01 X10*3/uL (0.00-0.03); Imm Gran Pct Auto 0.2 % (0.0-0.4); Lymphocytes Absolute Auto 1.1 X10*3/uL (1.2-4.9); Lymphocytes Percent Auto 17.8 % (20-40); Mean Corpuscular HGB Conc 34.4 g/dl (31.0-35.0); Mean Corpuscular Hemoglobin 31.4 pg (27.0-33.0); Mean Corpuscular Volume 91.1 fL (80.0-98.0); Mean Platelet Volume 10.3 fL (9.4-12.3); Monocytes Absolute Auto 0.5 X10*3/uL (0.1-1.2); Monocytes Percent Auto 7.8 % (2-11); Neutrophils Absolute Auto 4.5 x10*3/uL (2.0-8.3); Neutrophils Percent Auto 71.2 % (45-73); Platelet Count 206 X10*3/uL (160-400); Red Blood Count 4.62 X10*6/uL (4.20-5.50); Red Cell Distribution Width 12.8 % (11.0-16.0); White Blood Count 6.3 X10*3/uL (4.8-10.8)
[2024-12-29 10:26] LABS: Bacteria Urine None Seen (None Seen); Hyaline Casts Urine 0-2 /LPF (0-2); RBC Urine 0-2 /HPF (0-2); Squamous Epithelial Cell Urine 0-2 /HPF (0-2); WBC Urine 0-5 /HPF (0-5)
--- NOTE | 2024-12-29 10:33 | PC.NURSE ---
Patient presents to ED c/o right flank pain which has been persistant for approx a year but has become worse over the last few month. Pain rated 10/10 and radiates to front abdomen. Denies urinary symptoms. Patient reports having kidney stone approx 1 month ago. Patient also reports having constipation issues. ABD soft + bowel sounds, last BM was yesterday but it was a small amount no blood noted. Denies N/V. VSS and up to date. Plan of care on going
[2024-12-29 10:35] LABS: Alanine Aminotransferase 45 U/L (0-31); Albumin Level 4.3 g/dL (3.5-5.0); Alkaline Phosphatase 78 U/L (39-117); Aspartate Amino Transferase 32 U/L (5-31); Bilirubin Direct 0.3 mg/dL (0.0-0.5); Bilirubin Total 0.8 mg/dL (0.0-1.0); Lipase 18 U/L (8-78); Total Protein 7.4 g/dL (6.5-8.0)
--- OUTSIDE RECORDS SUMMARY | 2024-12-29 10:49 | XMS_ITS | Clinical Summary ---
Author Organization [facility] Address [address] [place], [place] [id number] Phone Care Team Providers Care Line Decorator Name Role Phone Sammy Arzate MD Primary Care Provider [phone] Allergies No known active allergies Medications citalopram 40 MG tablet Take 40 mg by mouth daily. Active Social History Tobacco Use Types Packs/Day Years Used Date Smoking Tobacco: Smoker, Current Status Unknown Cigarettes Comments Unknown Sex and Gender Information Value Date Recorded Sex Assigned at Not on file Legal Sex Female 10:30 AM EDT Gender Identity Not on file Sexual Orientation Not on file Last Filed Vital Signs Vital Sign Reading Time Taken Comments Blood Pressure 120/80 03/10/2018 1:14 PM EDT Pulse 76 03/10/2018 1:14 PM EDT Temperature 37.2 ??C (98.9 ??F) 03/10/2018 1:14 PM ED T Respiratory Rate - - Oxygen Saturation - - Inhaled Oxygen Concentration - - Weight 105 kg (231 lb 6 oz) 03/10/2018 1:14 PM E DT Height 172.7 cm (5' 8 ) 03/10/2018 1:14 PM EDT Body Mass Index 35.18 03/10/2018 1:14 PM EDT Plan of Treatment Health Maintenance Due Date Last Done Comments MMR Vaccines (1 of 1 - Stand el series) 1994 Varicella Vaccines (1 of 2 - 13+ 2-dose series) 2006 DTaP,Tdap,and Td Vaccines (1 - Tdap) 2011 Hepatitis B Vaccines (1 of 3 - 19+ 3-dose series) 2012 Influenza Vaccines (#1) 2024 COVID-19 Vaccine (2023-2 5 season) 2024 HIB Vaccines Aged Out No longer eligi ble based on patient's age to complete this topic HPV Vaccines Aged Out No longer eligi ble based on patient's age to complete this topic Hepatitis A Vaccines Aged Out No long er eligible based on patient's age to complete this topic IPV Vaccines Aged Out No longer eligi ble based on patient's age to complete this topic Men B Vaccine Aged Out No longer elig ible based on patient's age to complete this topic Meningococcal Vaccine Aged Out No manuel sridhar eligible based on patient's age to complete this topic Pneumococcal Vaccine Aged Out No long er eligible based on patient's age to complete this topic Procedures * Due to [place] [employer] law, this organization might not be sharing sensitive test results. Procedure Name Priority Date/Time Associated Diagnosis Comments CHLAMYDIA AND GONORRHEA, AMPLIFIED Routine 03/10/2018 1:26 PM EDT Acute cystitis with hematuria from Last 3 Months or Most Recently Relevant to Health Maintenance Results * Due to [place] [employer] law, this organization might not be sharing sensitive test results. * Chlamydia and Gonorrhea, Amplified (03/10/2018 1:26 PM EDT) Chlamydia Trachomatis, DNA Probe NEGATIVE (NEG) [facility] Comment: No Chlamydia Trachomatis RNA detected in this patient's sample ? (REFERENCE RANGE/NORMAL VALUE: NOT DETECTED) ? Note: This test uses board setter- mediated amplification method to detect rRNA from C. Trachomatis URINE GC AMP PROBE NEGATIVE (NEG) [facility] Comment: No Neisseria Gonorrhoeae RNA detected in this patient's sample ? (REFERENCE RANGE/NORMAL VALUE: NOT DETECTED) ? NOTE: This test uses board setter-mediated amplification method to detect rRNA from N.Gonorrhoeae. A negative result does not preclude infection. In the case of a negative urine result, testing of an endocervical(female) or urethral (male) specimen is recommended if there is high clinical suspicion of infection. Due to very high sensitivity of Nucleic Acid Amplification Test, false positive results may occur. Therefore, specimen handling is extremely important. In patients in whom the disease is unlikely, additional sample for testing should be considered after an initial positive result. The performance characteristics of this test have not been evaluated in children. The Aptima Combo2 assay is not intended for the evaluation of suspected sexual abuse or for other medico-legal indications. The ordering provider should assess if the patient had consensual sex without risk of sexual abuse. Consult the [facility] if needed. Contact phone number . Therapeutic failure or success cannot be determined with the Aptima Combo2 assay since nucleic acid may persist following appropriate antimicrobial therapy. The Centers for Disease Control and Prevention (CDC) recommends confirmatory retesting using culture or a different nucleic acid amplification test when positive results occur, if indicated. Testing performed or reported by [facility], a Service of [facility], [address] [place] [address] CLIA ??[id number] Ashley Morgan MD, PhD, Staff Readiness Officer Urine (Urine) 03/10/2018 1:2 6 PM EDT 03/10/2018 6:22 PM EDT us Nilo Nieves MD LAB MICROBIOLOGY - GENERAL O RDERABLES Final Result [facility] from Last 3 Months or Most Recently Relevant to Health Maintenance Insurance [facility] OTHER O O Care Teams Line Decorator Relationship Specialty Start Date End Date Sammy Arzate MD [address] [place] [address] [place] [id number] PCP - General Pediatrics 03/10/18
--- NOTE | 2024-12-29 11:13 | ECG_ITS ---
Test Reason : abdominal pain Blood Pressure : */* mmHG Vent. Rate : 66 BPM Atrial Rate : 66 BPM P-R Int : 142 ms QRS Dur : 92 ms QT Int : 410 ms P-R-T Axes : 40 43 19 degrees QTcB Int : 429 ms Normal sinus rhythm with sinus arrhythmia Normal ECG When compared with ECG of 17-Jun-2023 12:58, No significant change was found Referred By: Quinten Escobedo Electronically Signed By: JO INMAN MD
[2024-12-29 11:38] LABS: Anion Gap 12 (12-20); Blood Urea Nitrogen 11 mg/dL (9-16); Calcium 9.3 mg/dL (8.4-10.2); Carbon Dioxide 23 mmol/L (22-29); Chloride 106 mmol/L (96-108); Creatinine Clr Calc Pharmacy 161.5; Estimated Glomerular Filt Rate > 60; Glucose Random 93 mg/dL (60-115); Sodium 137 mmol/L (135-145)
[2024-12-29] MEDS: iohexoL 350 MG/ML 100 ML INFUS..BTL IV (12:30)
[2024-12-29 12:32] LABS: INTERNATIONAL NORM RATIO 1.1 (0.9-1.1); Prothrombin Time 12.1 SEC (10.9-12.4)
[2024-12-29 12:35] LABS: Partial Thromboplastin Time 29.1 SEC (26.0-36.8)
--- NOTE | 2024-12-29 12:36 | ED_ITS ---
HPI - General Adult General Chief complaint: Abdominal Pain Stated complaint: Pressure/pain rib cage R side Time Seen by Provider: 12/29/24 10:43 Source: patient Mode of arrival: ambulatory Limitations: no limitations History of Present Illness ED Provider: Quinten Waite HPI narrative: 29 yold female with pmh of sinusitits and covid presents to the ED for RIght flank/rib/RUQ pain that is worse on movement for 1 year, but now worsens the past couple of weeks. Patient denies any recent trauma, fever, chills, or rash. Patient also states right leg pain and left arm pain the past couple of weeks Related Data Previous Rx's ?Medication ?Instructions ?Recorded Ventolin HFA 90 mcg/actuation 2 puff inhalation Q4-6H PRN 06/12/23 aerosol inhaler (albuterol sulfate) shortness of breath or wheezing 30 days #18 grams amoxicillin 875 mg-potassium 1 tab PO BID 7 days #14 tabs 06/12/23 clavulanate 125 mg tablet doxycycline monohydrate 100 mg 100 mg PO BID #20 tabs 06/17/23 tablet prednisone 20 mg tablet 40 mg (2 x 20 mg) PO DAILY #10 tabs 06/17/23 fluticasone furoate 100 1 inh inhalation DAILY #30 ea 07/10/23 mcg/actuation blister powder for inhalation prednisone 20 mg tablet 60 mg (3 x 20 mg) PO DAILY #12 tabs 10/19/23 ibuprofen 600 mg tablet 600 mg PO Q6H PRN fever or pain 07/10/24 #30 tabs morphine 15 mg immediate release 15 mg PO Q8H PRN severe pain 10/28/24 tablet (scale score 7-10) #6 tabs naproxen 500 mg tablet 500 mg PO BID #30 tabs 10/28/24 ondansetron 4 mg disintegrating 4 mg PO Q8H PRN nausea and 10/28/24 tablet vomiting #10 tabs prednisone 20 mg tablet 20 mg PO DAILY #7 tabs 10/28/24 tamsulosin 0.4 mg capsule 0.4 mg PO DAILY 3 months #90 caps 10/29/24 naproxen 500 mg tablet 500 mg PO BID PRN pain #14 tabs 12/29/24 Allergies Allergy/AdvReac Type Severity Reaction Status Date / Time dog dander [DOG] Allergy Mild SNEEZING Verified 12/29/24 09:51 WATER EYS, HIVES amoxicillin [From Augmentin] Allergy Rash Verified 12/29/24 09:51 clavulanic acid Allergy Rash Verified 12/29/24 09:51 [From Augmentin] Review of Systems 2 Review of Systems: RIght flank pain, right upper quadrant pain, Yes all other systems are reviewed and are negative PMF Past Medical History Medical History No known health problems Social History Social History Alcohol intake: former Patient Tobacco Use Status: Current everyday Tobacco user Physical Exam ED Vital Signs: Vital Signs - 24 hr 12/29/24 09:50 12/29/24 10:23 12/29/24 12:43 Temperature 97.9 F 97.9 F 98.3 F Pulse Rate 86 86 56 Respiratory Rate 18 18 17 Blood Pressure 118/78 118/78 116/67 Pulse Oximetry 95 95 97 Oxygen Delivery Method Room Air Room Air Room Air 12/29/24 14:35 12/29/24 15:37 Temperature 98.1 F 97.7 F Pulse Rate 62 62 Respiratory Rate 14 14 Blood Pressure 118/77 122/79 Pulse Oximetry 97 97 Oxygen Delivery Method Room Air Room Air BMI result Body Mass Index 47.8 Const General: cooperative, healthy appearing, comfortable, no acute distress, well developed, alert, awake and Physically active Orientation/consciousness: patient oriented x3 HENMT Head: Yes normal to inspection, Yes No palpable skull fracture present, Yes normocephalic and Yes atraumatic Eyes General: appearance normal, both eyes and all related structures Neck Neck: Yes normal visual inspection, Yes full ROM, Yes no lymphadenopathy, Yes no meningeal signs, Yes trachea midline, Yes supple, No anterior neck swelling and No tender Chest Chest palpation & inspection: normal inspection of the chest and normal palpation of entire chest wall Resp Effort & Inspection: normal respiratory effort and able to speak in complete sentences Auscultation: clear to auscultation bilaterally Cardio Jugular venous distension: no JVD Heart sounds: S1 normal heart sound present and S2 normal heart sound present GI Inspection: Yes normal to inspection Palpation (GI): Soft to palpation, not firm, Tenderness to palpation present (GI) in the RUQ, no guarding and not rigid General: Yes no CVA tenderness Back/Spine/Pelvis Back: no CVA tenderness and No back tenderness Skin General skin exam: no rashes or lesions noted, elasticity normal and turgor normal Neuro General: patient oriented x3, gait normal, tone normal, moves all extremities, Normal light touch and pain sensation, no meningeal signs, no focal motor deficits, CN's II-XI intact bilaterally and normal sensation to monofilament Extrem Other: Left upper extremity: Negative for any tenderness, swelling, ecchymosis, erythema, red streaks, or deformity. Motor neuro/vascular exam intact. Bilateral lower extremity negative for swelling, pitting edema, or calf tenderness/erythema ecchymosis. Motor/neuro/vascular exam intact General: Yes normal to inspection, Yes full ROM and Yes capillary refill normal Psych Appearance: grossly normal, well kempt and not disheveled Medications Administered Discontinued Medications Generic Name Dose Route Start Last Admin Trade Name Freq PRN Reason Stop Dose Admin Iohexol 100 ml 12/29/24 12:29 12/29/24 12:30 Iohexol 350 Mg/Ml 100 Ml Infus..Btl IV 12/29/24 12:30 85 ml ONCE ONE Administration Ketorolac Tromethamine 30 mg 12/29/24 14:26 12/29/24 14:45 Ketorolac Tromethamine 30 Mg/Ml Vial IVPUSH 12/29/24 14:27 30 mg ONCE ONE Administration Medical Decision Making Medical Decision Making [facility] Narrative: 29-year-old female presents to ED for right upper quadrant right flank. That is worse with movement for 1 year worse in the past couple of weeks. Patient also states right leg pain without any trauma also left leg pain. Patient denies any pleurisy, nausea, vomiting, fever or chills. Negative for any signs of neuro deficits. Lower extremities bilateral negative for any swelling pitting edema or calf tenderness. Chest CTA abdominal CT scan came back negative and normal. Abdominal CT scan only shows fatty liver. Ultrasound negative for DVT. Patient is given Toradol. Patient explained worrisome signs informed to return to the ED immediately. Patient given copy of labs and images. Not suspecting pericarditis, aortic dissection, myocarditis, pneumothorax, hemothorax, CHF, or any other life-threatening etiology. Heart score is 0. No need for x-ray or imaging of left upper extremity. Not suspecting DVT, fracture, compartment syndrome, lymphangitis, or arterial arterial occlusion. One troponin after having left arm pain for 1 week suffice. No need for right lower extremity x- ray negative for signs of trauma and patient presently has no pain. Differential Diagnosis Differential Diagnoses: The differential diagnosis associated with the presentation includes (Kidney stones, UTI, PE, pneumothorax, pneumonia cholecystitis) Admission/Observation Consideration of admission/observation: Escalation of care including admission/observation considered Lab Data MDM Lab Attestation statement: I reviewed the patient's lab results. 12/29/24 10:13 12/29/24 10:13 Labs: Lab Results 12/29/24 12/29/24 Range/Units 10:13 12:12 WBC 6.3 (4.8-10.8) X10*3/uL RBC 4.62 (4.20-5.50) X10*6/uL Hgb 14.5 (12.0-16.0) g/dl Hct 42.1 (37.0-47.0) % MCV 91.1 (80.0-98.0) fL MCH 31.4 (27.0-33.0) pg MCHC 34.4 (31.0-35.0) g/dl RDW 12.8 (11.0-16.0) % Plt Count 206 (160-400) X10*3/uL MPV 10.3 (9.4-12.3) fL Immature Gran % (Auto) 0.2 (0.0-0.4) % Neut % (Auto) 71.2 (45-73) % Lymph % (Auto) 17.8 L (20-40) % [place] % (Auto) 7.8 (2-11) % Eos % (Auto) 2.2 (0-4) % Baso % (Auto) 0.8 (0-2) % Lymph # (Auto) 1.1 L (1.2-4.9) X10*3/uL [place] # (Auto) 0.5 (0.1-1.2) X10*3/uL Eos # (Auto) 0.1 (0.0-0.4) X10*3/uL Baso # (Auto) 0.1 (0.0-0.2) X10*3/uL Abs Immat Gran (auto) 0.01 (0.00-0.03) X10*3/uL Absolute Neuts (auto) 4.5 (2.0-8.3) x10*3/uL Absolute Nucleated RBC 0.000 (0.0-0.012) X10*3/uL Nucleated RBC % (auto) 0.0 (0.0-0.2) /100WBC PT 12.1 (10.9-12.4) SEC INR 1.1 (0.9-1.1) APTT 29.1 (26.0-36.8) SEC Sodium 137 (135-145) mmol/L Potassium 4.0 (3.3-5.1) mmol/L Chloride 106 (96-108) mmol/L Carbon Dioxide 23 (22-29) mmol/L Anion Gap 12 (12-20) BUN 11 (9-16) mg/dL Creatinine 0.76 (0.5-1.4) mg/dL Estim Creat Clear Calc 161.5 Estimated GFR > 60 Random Glucose 93 (60-115) mg/dL Calcium 9.3 (8.4-10.2) mg/dL Magnesium 2.0 (1.6-2.6) mg/dL Total Bilirubin 0.8 (0.0-1.0) mg/dL Direct Bilirubin 0.3 (0.0-0.5) mg/dL AST 32 H (5-31) U/L ALT 45 H (0-31) U/L Alkaline Phosphatase 78 (39-117) U/L Total Creatine Kinase 102 (26-140) U/L Troponin I High Sens < 2.7 (<3.5-17.0) ng/L Total Protein 7.4 (6.5-8.0) g/dL Albumin 4.3 (3.5-5.0) g/dL Lipase 18 (8-78) U/L Urine Color Yellow Urine Appearance Clear Urine pH 6.5 (5.0-9.0) Ur Specific [place] <= 1.005 (1.005-1.025) Urine Protein Negative (Neg-Trace) mg/dL Urine Glucose (UA) Negative (Negative) mg/dL Urine Ketones Negative (Negative) mg/dL Urine Blood Negative (Negative) Urine Nitrite Negative (Negative) Ur Leukocyte Esterase Negative (Negative) Urine RBC 0-2 (0-2) /HPF Urine WBC 0-5 (0-5) /HPF Ur Squamous Epith Cells 0-2 (0-2) /HPF Urine Bacteria None Seen (None Seen) Hyaline Casts 0-2 (0-2) /LPF Urine Test NEGATIVE (NEGATIVE) Independent Interpretation I performed an independent interpretation of an: EKG (Negative STEMI) and CT Scan Radiology Impression Discussion of test interpretation with radiology: I have reviewed the radiologist's reading. Independent Historian Clinical information obtained from an independent historian. History obtained from or confirmed by: Other (Patient) Prescription Management I considered prescription management with: Pain Medication Discharge Plan Discharge Clinical Impression: Flank pain, Hepatic steatosis Patient Disposition: Home, Self-Care Instructions: Non-Alcoholic Fatty Liver Disease (ED), Flank Pain (ED) Additional Instructions: Your images and lab work came back reassuring. CT scan of the abdomen shows fatty liver. You will need follow up with primary care provider. You will be given copy of your labs and images. Return to the ED immediately for any abdominal pain, nausea, vomiting, dysuria, hematuria, flank pain, fever, chills, coughing up blood, leg swelling, calf pain, slurred speech, facial droop, paralysis of extremities, leg swelling, calf pain, dizziness, or any other concerning symptoms. Report Number: [id number]: Total DLP = 495.00 mGy-cm EXAMINATION: CT ANGIOGRAM CHEST CLINICAL INFORMATION: Right-sided rib pain, rule out PE. COMPARISON: None available. TECHNIQUE: Multiple axial images were obtained through the chest after the administration of 50 mL of Omnipaque 350 intravenous contrast. Extensive vascular post-processing including two-dimensional and three-dimensional reformatted images were created and reviewed on an independent workstation. This CT examination was performed using dose optimization techniques as appropriate, variously including the following: *Automated exposure control *Adjustment of mA and/or kV according to patient size (this includes techniques or standardized protocols for targeted exams where dose is matched to indication/reason for exam; i.e. extremities or head) *Use of iterative reconstruction technique FINDINGS: VASCULAR: There is no evidence of pulmonary embolus. The main pulmonary artery is normal in caliber. There is no right heart strain are reflux of contrast into the IVC. The aorta is normal in caliber and course without evidence of acute aortic syndrome. The heart size is normal. No pericardial effusion. The great vessels are patent. LUNGS: The lungs are clear. No consolidations or abnormal opacities. Mild thickening of the small airways is present, concern for mild inflammatory airways disease. No pleural effusion or pneumothorax. No suspicious nodules. MEDIASTINUM: Partially imaged thyroid is normal. Residual thymus in the anterior superior mediastinum. No esophageal abnormality. No adenopathy. CHEST WALL/AXILLA: Normal. IMAGED UPPER ABDOMINAL CONTENTS: Mild diffuse fatty infiltration of the liver. OSSEOUS STRUCTURES: No fracture or suspicious bone lesion. Mild degenerative spinal changes with Schmorl's nodes in the endplates. CT/CT angio chest PE protocol IMPRESSION: 1. No evidence of pulmonary embolus. No evidence of acute aortic syndrome. 2. The lungs are clear bilaterally. No pneumonic consolidation or effusion. 3. There is mild thickening of the small airways suggesting inflammatory airways disease. 4. There is no acute osseous abnormality. 5. There is diffuse fatty infiltration of the liver. Electronically signed by: Carlos Reinoso MD 12/29/2024 01:24 PM EDT RP XAMINATION: CT ABDOMEN PELVIS WITH IV CONTRAST HISTORY: Right flank/upper abdominal pain COMPARISON: Comparison is made with the prior examination dated 10/28/2024. TECHNIQUE: CT scan of the abdomen and pelvis was performed following administration of 85 mL Omnipaque 350 using standard departmental protocol. Coronal and sagittal reformatted images were generated and reviewed. Oral contrast material was not administered at the request of the referring physician. This CT exam was performed with one or more of the following dose reduction techniques: automated exposure control, adjustment of the mA and/or kV according to patient size, use of iterative reconstruction technique. DLP: 1120 mGy-cm FINDINGS: LOWER CHEST: Again seen is a 2 mm nodule at the left lung base. The visualized right lung base is clear. There is no pleural effusion. CARDIOVASCULATURE: The heart is normal in size. There is no pericardial effusion. LIVER: The liver is enlarged and demonstrates diffusely decreased attenuation, consistent with steatosis. No liver mass is identified. The hepatic and portal veins are patent. GALLBLADDER / BILE DUCTS: The gallbladder is unremarkable. There is no intra or extrahepatic biliary ductal dilatation. SPLEEN: The spleen is normal in size. No focal splenic lesion is identified. PANCREAS: The pancreas is unremarkable in appearance. ADRENAL GLANDS: Within normal limits. KIDNEYS/RETROPERITONEUM: No renal calculi are identified. There is no hydronephrosis. There is a 10 mm probable cyst at the lower pole of the right kidney. Again seen is a subcentimeter exophytic slightly hyperdense lesion at the upper pole of the left kidney. LYMPH NODES: No abdominal or pelvic lymphadenopathy. VASCULATURE: The abdominal aorta is normal in caliber. MESENTERY/PERITONEUM: No free fluid. No masses. There is no free intraperitoneal gas. STOMACH: The stomach is collapsed, limiting evaluation. SMALL BOWEL: The small bowel is normal in caliber. COLON: The colon is unremarkable. APPENDIX: Normal. URINARY BLADDER/PELVIC ORGANS: The urinary bladder is unremarkable. IUD is again noted in the uterus. The IUD is positioned in the sagittal plane with the arms extending into the myometrium. There is a 2.8 cm right ovarian cyst versus follicle.. BONES / SOFT TISSUES: No suspicious bony or soft tissue abnormalities. CT/CT abdomen pelvis w IV con IMPRESSION: 1. Hepatomegaly and hepatic steatosis. 2. No acute inflammatory process is identified. Incidental findings as discussed above. Electronically signed by: Luis Mario MD 12/29/2024 01:32 PM EDT EXAMINATION: US TRIPLEX LOWER EXTREMITY, RIGHT CLINICAL INFORMATION: Pain, right lower extremity COMPARISON: None available. TECHNIQUE: Color-flow triplex imaging with spectral analysis and compression Doppler were performed on the right lower extremity. FINDINGS: Respiratory variation, normal compression and augmented flow are demonstrated throughout the interrogated common femoral vein, superficial femoral vein, profunda femoral vein, popliteal vein and midcalf peroneal and posterior tibial venous segments . There is no Olsen's cyst. US/US venous duplex LE RT IMPRESSION: No acute deep venous thrombosis interrogated veins, right lower extremity. Negative for DVT. Electronically signed by: Marco Sommers MD 12/29/2024 02:07 PM EDT Prescriptions: New naproxen 500 mg tablet 500 mg PO BID PRN (Reason: pain) Qty: 14 0RF No Action albuterol sulfate [Ventolin HFA] 90 mcg/actuation HFA aerosol inhaler 2 puff inhalation Q4-6H PRN (Reason: shortness of breath or wheezing) 30 Days Qty: 18 0RF doxycycline monohydrate 100 mg tablet 100 mg PO BID Qty: 20 0RF prednisone 20 mg tablet 40 mg PO DAILY Qty: 10 0RF fluticasone furoate 100 mcg/actuation blister with device 1 inh inhalation DAILY Qty: 30 0RF Rx Instructions: rinse mouth after use prednisone 20 mg tablet 60 mg PO DAILY Qty: 12 0RF ibuprofen 600 mg tablet 600 mg PO Q6H PRN (Reason: fever or pain) Qty: 30 0RF ondansetron 4 mg tablet,disintegrating 4 mg PO Q8H PRN (Reason: nausea and vomiting) Qty: 10 0RF prednisone 20 mg tablet 20 mg PO DAILY Qty: 7 0RF naproxen 500 mg tablet 500 mg PO BID Qty: 30 0RF morphine 15 mg tablet 15 mg PO Q8H PRN (Reason: severe pain (scale score 7-10)) Qty: 6 0RF Rx Instructions: Partial Fill upon patient request. tamsulosin 0.4 mg capsule 0.4 mg PO DAILY 90 Days Qty: 90 0RF amoxicillin-pot clavulanate 875-125 mg tablet 1 tab PO BID 7 Days Qty: 14 0RF Stand Alone Forms: Work/School Release Interventions: ED Discharge Assessment Last Done: 12/29/24 15:37 Discharge Date/Time: 12/29/24 15:51 Print Language: Maltese
[2024-12-29 12:43] VITALS: BP 116/67; PULSE 56; RESP 17; TEMP 36.8; O2SAT 97
[2024-12-29 12:52] LABS: Troponin-I High Sensitivity < 2.7 ng/L (<3.5-17.0)
[2024-12-29 14:35] VITALS: BP 118/77; PULSE 62; RESP 14; TEMP 36.7; O2SAT 97
[2024-12-29] MEDS: Ketorolac Tromethamine 30 MG/ML VIAL IVPUSH (14:45)
[2024-12-29 15:37] VITALS: BP 122/79; PULSE 62; RESP 14; TEMP 36.5; O2SAT 97
== END 2024-12-29 15:51 | disposition home or self-care (01) ==
PROVIDERS: Physician Assistant; Emergency Provider Emergency Medicine; PCP Internal Medicine
DX: K76.0 Fatty (change of) liver, not elsewhere classified (principal); R10.11 Right upper quadrant pain; R10.2 Pelvic and perineal pain; R07.89 Other chest pain; R60.0 Localized edema; M79.604 Pain in right leg; M79.602 Pain in left arm; F17.210 Nicotine dependence, cigarettes, uncomplicated; Z79.899 Other long term (current) drug therapy
CPT/HCPCS: 36415; 71275; 74177; 80048; 80076; 81001; 81025; 82550; 83690; 83735; 84484; 85025; 85610; 85730; 93005; 93971; 96374; 99284; 99285; J1885; Q9967

== ENCOUNTER → 2024-12-29 11:13 | Outpatient (BNV) | payer OTHER, SELFPAY | PROVIDERS: Emergency Provider Emergency Medicine; PCP Internal Medicine; Visit Provider Internal Medicine Cardiovascular Disease | DX: R10.9 Unspecified abdominal pain (principal) | CPT/HCPCS: 93010 ==

== ENCOUNTER → 2024-12-29 11:22 | Outpatient (BNV) | payer OTHER, SELFPAY | PROVIDERS: Emergency Provider Emergency Medicine; PCP Internal Medicine; Visit Provider Radiology Diagnostic Radiology | DX: R16.0 Hepatomegaly, not elsewhere classified (principal); J98.09 Other diseases of bronchus, not elsewhere classified; M79.661 Pain in right lower leg | CPT/HCPCS: 71275; 74177; 93971 ==

== ENCOUNTER 2024-12-30 10:50 | Outpatient (AMB) | payer OTHER, SELFPAY ==
--- NOTE | 2024-12-30 10:57 | MHC.OFFVIS ---
Intake Visit Reasons: kidney stones Intake Note: Patient is present for KIDNEY STONES Urology Medication:TAMSULOSIN Antibiotic Allergy:AMOXICILLIN Blood Thinner:NONE Glass Ribbon Machine Operator Assistant Required: No Allergies dog dander [DOG] Allergy (Mild, Verified 12/30/24 10:58) SNEEZING WATER EYS, HIVES amoxicillin [From Augmentin] Allergy (Verified 12/30/24 10:58) Rash clavulanic acid [From Augmentin] Allergy (Verified 12/30/24 10:58) Rash HPI Comments Details: Sheba is a pleasant female. She is a patient of Dr. Bowling. She is seen for the following urologic conditions - nephrolithiasis Pain secondary to back related issues Discussed imaging finding Would follow-up 12 months imaging Imaging - 12/27 CT There is a 10 mm probable cyst at the lower pole of the right kidney. Again seen is a subcentimeter exophytic slightly hyperdense lesion at the upper pole of the left kidney PFSH Medical History No known health problems Social History Alcohol intake: former Patient Tobacco Use Status: Current everyday Tobacco user Review of Systems Const Denies chills and Denies fever(s) Card Reports no additional complaints and Denies syncope Resp Denies cough GI Denies abdominal pain and Denies heartburn Reports as per HPI and Denies change in libido Neuro Denies syncope Psych Denies change in libido Endo Denies change in libido Physical Exam Const General: cooperative, healthy appearing, comfortable and no acute distress Orientation/consciousness: patient oriented x3 HEENT Face and sinus: Yes normal facial exam Mouth: moist mucous membranes Neck Neck: Yes normal visual inspection, Yes full ROM and Yes trachea midline Chest Chest palpation & inspection: normal inspection of the chest Resp Effort & Inspection: normal respiratory effort, able to speak in complete sentences and no respiratory distress GI Inspection: Yes normal to inspection Back/Spine/Pelvis Cervical Spine: normal cervical lordosis Thoracic/Lumbar Spine: thoracic and lumbar spine normal to inspection Skin General skin exam: no rashes or lesions noted Neuro General: patient oriented x3, gait normal, tone normal and moves all extremities Extrem General: Yes normal to inspection and Yes capillary refill normal Results AMB Urinalysis, Automated UA Leukoctes 70 Cachorro/uL Last Edit by LESLIE Gandara on 12/30/24 12:14 UA Nitrite Negative Last Edit by LESLIE Gandara on 12/30/24 12:14 UA Urobilinogen 0.2 mg/dL Last Edit by LESLIE Gandara on 12/30/24 12:14 UA Protein 0 mg/dL Last Edit by Kingsley Gerber CCM on 12/30/24 12:14 UA pH 6.0 Last Edit by Kingsley Gerber [facility] on 12/30/24 12:14 UA Blood 0 Lars/uL Last Edit by Kingsley Gerber [facility] on 12/30/24 12:14 UA Specific Halsey 1.010 Last Edit by LESLIE Gandara on 12/30/24 12:14 UA Ketone Negative Last Edit by Kingsley Gerber [facility] on 12/30/24 12:14 UA Bilirubin 0 mg/dL Last Edit by Kingsley Gerber [facility] on 12/30/24 12:14 UA Glucose 0 mg/dL Last Edit by Kingsley Gerber [facility] on 12/30/[facility] 12:14 Results Reviewed Results Reviewed: Laboratory Last Values Urine pH (Auto) 6.0 12/30/24 12:12 Specific Halsey (Auto) 1.010 12/30/24 12:12 Urine Protein (Auto) 0 mg/dL 12/30/24 12:12 Glucose (UA)(Auto) 0 mg/dL 12/30/24 12:12 Urine Ketones (Auto) Negative 12/30/24 12:12 Urine Blood (Auto) 0 Lars/uL 12/30/24 12:12 Urine Nitrite (Auto) Negative 12/30/24 12:12 Urine Bilirubin (Auto) 0 mg/dL 12/30/24 12:12 Urine Urobilinogen (Auto) 0.2 mg/dL 12/30/24 12:12 Leukocyte Esterase (Auto) 70 Cachorro/uL 12/30/24 12:12 Assessment & Plan Assessment & Plan (1) Renal cyst: Code(s): N28.1 - Cyst of kidney, acquired Category: Medical Plan 12 month follow-up repeat ultrasound Orders: Orders AMB Urinalysis Automated 05/28/25 Z13.9 - Encounter for screening, unspecified US renal BI 12 Months N28.1 - Cyst of kidney, acquired Patient Instructions: This note is constructed using voice recognition software. While every effort has been made to ensure accuracy immigration guard errors may have been included. Imaging studies, laboratory and physical exam results were discussed and reviewed in detail. No major barriers to patient understanding were identified. An opportunity to ask questions regarding the treatment plan was provided. All questions were answered. The patient expressed understanding and agreement with the above treatment plan. The patient is aware they should contact our office by phone for worsening of their current condition or the appearance of new urologic symptoms. Compliance is encouraged with any medications and followup testing that is ordered. It is a privilege to participate in the urologic care of your patient. If you have any questions or concerns regarding treatment for the above conditions, or other urologic issues, please do not hesitate to contact me. The office telephone contact is [phone]. Sincerely, Dr Jimmie Rahman MD, [facility] - Urology Compassionate Specialist Care for the Genitourinary System Coding Level of Care Code New Pt Level 3 (10657) Diagnoses Renal cyst N28.1
--- OUTSIDE RECORDS SUMMARY | 2024-12-30 11:56 | XMS_ITS | Clinical Summary ---
Author Organization [facility] Address [address] [place], [place] [id number] Phone Care Team Providers Care Software Installer Name Role Phone Sammy Arzate MD Primary Care Provider [phone] Allergies No known active allergies Medications citalopram [...] complete this topic Procedures * Due to [place] [employer] law, this organization might not be sharing sensitive test results. Procedure Name Priority Date/Time Associated Diagnosis Comments CHLAMYDIA AND GONORRHEA, AMPLIFIED Routine 03/10/2018 1:26 PM EDT Acute cystitis with hematuria from Last 3 Months or Most Recently Relevant to Health Maintenance Results * Due to [place] [employer] law, this organization might not be sharing sensitive test results. * Chlamydia and Gonorrhea, Amplified (03/10/2018 1:26 PM EDT) Chlamydia Trachomatis, DNA Probe NEGATIVE (NEG) [facility] Comment: No Chlamydia Trachomatis RNA detected in this patient's sample ? (REFERENCE RANGE/NORMAL VALUE: NOT DETECTED) ? Note: This test uses balance bridge assembler- mediated amplification method to detect rRNA from C. Trachomatis URINE GC AMP PROBE NEGATIVE (NEG) [facility] Comment: No Neisseria Gonorrhoeae RNA detected in this patient's sample ? (REFERENCE RANGE/NORMAL VALUE: NOT DETECTED) ? NOTE: This test uses balance bridge assembler-mediated amplification method to detect rRNA from N.Gonorrhoeae. [...] without risk of sexual abuse. Consult the [facility] if needed. Contact phone number . Therapeutic failure or success cannot be determined with the Aptima Combo2 assay since nucleic acid may persist following appropriate antimicrobial therapy. The Centers for Disease Control and Prevention (CDC) recommends confirmatory retesting using culture or a different nucleic acid amplification test when positive results occur, if indicated. Testing performed or reported by [facility], a Service of [facility], [address] [place] [address] CLIA ??[id number] Ashley Morgan MD, PhD, Silver Steward Urine (Urine) 03/10/2018 1:2 6 PM EDT 03/10/2018 6:22 PM EDT us Nilo Nieves MD LAB MICROBIOLOGY - GENERAL O RDERABLES Final Result [facility] from Last 3 Months or Most Recently Relevant to Health Maintenance Insurance [facility] OTHER O O Care Teams Software Installer Relationship Specialty Start Date End Date Sammy Arzate MD [address] [place] [address] [place] [address] PCP - General Pediatrics 03/10/18
== END 2024-12-30 11:43 | disposition home or self-care (01) ==
LOC: HO.HUSH 10:51
PROVIDERS: PCP Internal Medicine; Visit Provider Urology
DX: N28.1 Cyst of kidney, acquired (principal)
CPT/HCPCS: 99203

== ENCOUNTER → 2024-12-30 10:50 | Outpatient (BNVA) | payer OTHER, SELFPAY | PROVIDERS: PCP Internal Medicine; Visit Provider Urology | DX: N28.1 Cyst of kidney, acquired (principal) | CPT/HCPCS: 81003; 99202 ==

== ENCOUNTER 2025-05-27 18:14 | Emergency (ER) | payer OTHER, SELFPAY ==
--- NOTE | ~2025-05-27 | XR_ITS ---
CLINICAL HISTORY: cough 2 view chest x-ray Comparison: CR/NJ/SR - XR CHEST 2 VIEWS - 10/18/23 17:14 EDT CR/SR - XR CHEST 2 VIEWS - 07/10/23 05:42 EST Findings: No consolidation or effusion. Heart size is normal. No acute fracture. IMPRESSION: 1. No acute findings. This document has been electronically signed by: Shawna Chapman MD on 05/27/2025 19:46:08
[2025-05-27 18:15] VITALS: BP 131/76; PULSE 82; RESP 20; TEMP 36.7; O2SAT 96; BMI 48.0
--- NOTE | 2025-05-27 18:17 | ED_ITS ---
HPI - URI/Sore Throat General Chief Complaint: Upper Respiratory Symptoms Stated Complaint: ? severe lung infection, cough Time Seen by Provider: 05/27/25 19:39 Source: patient Limitations: no limitations History of Present Illness ED Provider: Martina Bernstein PA-C HPI Narrative: 30-year-old female with a history of asthma, migraine, seizure disorder, Meniere syndrome presents with right ear pain. Patient states she has just completed treatment for bronchitis, including a steroid taper. Patient has developed a fullness of the right ear with associated discomfort. Patient states the pain radiates posteriorly to lateral right head. Pain intensifies when she coughs. Denies fever. Related Data Home Medications ?Medication ?Instructions ?Recorded ?Confirmed topiramate 100 mg tablet 100 mg PO BEDTIME 03/05/25 Previous Rx's ?Medication ?Instructions ?Recorded Ventolin HFA 90 mcg/actuation 2 puff inhalation Q4-6H PRN 06/12/23 aerosol inhaler (albuterol sulfate) shortness of breat h or wheezing 30 days #18 grams amoxicillin 875 mg-potassium 1 tab PO BID 7 days #14 t abs 06/12/23 clavulanate 125 mg tablet doxycycline monohydrate 100 mg 100 mg PO BID #20 tabs 06/17/23 tablet prednisone 20 mg tablet 40 mg (2 x 20 mg) PO DAILY # 10 tabs 06/17/23 fluticasone furoate 100 1 inh inhalation DAILY #30 e a 07/10/23 mcg/actuation blister powder for inhalation prednisone 20 mg tablet 60 mg (3 x 20 mg) PO DAILY # 12 tabs 10/19/23 ibuprofen 600 mg tablet 600 mg PO Q6H PRN fever or p ain 07/10/24 #30 tabs morphine 15 mg immediate release 15 mg PO Q8H PRN scout re pain 10/28/24 tablet (scale score 7-10) #6 tabs naproxen 500 mg tablet 500 mg PO BID #30 tabs 10/28 ondansetron 4 mg disintegrating 4 mg PO Q8H PRN nausea and 10/28/24 tablet vomiting #10 tabs prednisone 20 mg tablet 20 mg PO DAILY #7 tabs 10/28 tamsulosin 0.4 mg capsule 0.4 mg PO DAILY 3 months #90 caps 10/29/24 naproxen 500 mg tablet 500 mg PO BID PRN pain #14 t abs 12/29/24 azithromycin 250 mg tablet 250 mg PO DAILY 4 days #4 t abs 05/27/25 codeine 10 mg-guaifenesin 100 mg/5 10 ml PO Q4-6H PRN cough #118 mL 05/27/25 mL oral liquid (Guaifenesin AC) Allergies Allergy/AdvReac Type Severity Reaction Status Date / Time dog dander (DOG) Allergy Mild SNEEZING Verified 05/27/25 18:16 WATER EYS, HIVES amoxicillin (From Augmentin) Allergy Rash Verified 05/27/25 18:16 clavulanic acid (From Allergy Rash Verified 05/27/25 18:16 Augmentin) Review of Systems 2 Review of Systems: Yes all other systems are reviewed and are negative Constitutional: Constitutional: Denies fatigue, Denies fever(s) and Denies headache(s) ENT: Denies dizziness, Denies ear discharge, Reports otalgia and Denies headache(s) Gastrointestinal: Gastrointestinal: Denies nausea and Denies vomiting Neurologic: Denies dizziness and Denies headache(s) Endocrine: Endocrine: Denies fatigue [facility] Past Medical History Attestation statement: The following information was validated with the patient. Medical History (Updated 05/28/25 @ 00:00 by Beatrice Roth) Meniere syndrome Seizure disorder Basilar migraine Social History Social History Alcohol intake: former Patient Tobacco Use Status: Current everyday Tobacco user Advance Directives: No Advance Directives Information Provided: Yes Physical Exam 2 Vital Signs: Vital Signs: Last Vital Signs Temp 98.1 F 05/27/25 22:58 Pulse 82 05/27/25 22:58 Resp 20 05/27/25 22:58 BP 131/76 05/27/25 22:58 Pulse Ox 96 05/27/25 22:58 O2 Del Method Room Air 05/27/25 22:58 BMI result Body Mass Index 48.0 Const: Other: Alert Orientation/consciousness: patient oriented x3 HEENT: Other: Right TM is opaque with the overlying erythema, exam was uncomfortable for the patient, no palpable pain, erythema or warmth and a rude over the mastoid bone Resp: Other: Active bronchospasm cough, no wheezing Effort & Inspection: normal respiratory effort Cardio: Other: Normal peripheral perfusion Skin: Other: Warm dry no rash Neuro: General: patient oriented x3, gait normal, no focal motor deficits and CN's II-XI intact bilaterally Psych: Other: Cooperative Course Course Course Narrative: This is an RME: Additional HPI, ROS, PE not included below will be deferred to primary provider. RME assessment and note performed by: Flores Fortune PA-C This is a [id number]-female who presents to the ER with a complaint of shortness of breath x 1 week. Reports that she developed her symptoms 1 week ago, seen at Urgent care then went to [facility] and was told she had bronchitis. Reports that at urgent care she has had fullness in her right ear. Also endorsing a constant pain in her posterior head/eye. Right TM with air-fluid levels noted. She also reports that she has had a worsening cough. Plan: Labs, CXR, further ER eval needed Medications Administered Discontinued Medications Generic Name Dose Route Start Last Admin Trade Name Freq PRN Reason Stop Dose Admin Azithromycin 500 mg 05/27/25 22:38 05/27/25 22:56 Azithromycin 500 Mg Tablet PO 05/27/25 22:39 500 mg ONCE ONE Administration Medical Decision Making Medical Decision Making [facility] Narrative: 30-year-old female with a history of asthma, migraine, seizure disorder, Meniere syndrome presents with right ear pain. Patient states she has just completed treatment for bronchitis, including a steroid taper. Patient has developed a fullness of the right ear with associated discomfort. Patient states the pain radiates posteriorly to lateral right head. Pain intensifies when she coughs. Denies fever. Problem: Asthma, prior Meniere syndrome History: Per patient I have considered the following differential diagnoses: Om, OE, serous otitis, mastoiditis Plan: Patient is here with a residual bronchospasm, she is not actively wheezing, she just completed a steroid taper. She has a evidence of otitis media on exam, we will treat with the antibiotics. To note she does not have exam findings consistent with mastoiditis, imaging not warranted. We will send with Mucinex with codeine for her ongoing cough I have independently reviewed the following tests: Labs: No leukocytosis, not anemic, no electrolyte abnormality noted, viral panel negative Chest x-ray:Findings: No consolidation or effusion. Heart size is normal. No acute fracture. IMPRESSION: 1. No acute findings Differential Diagnosis Differential Diagnoses: The differential diagnosis associated with the presentation includes See medical decision-making Admission/Observation Consideration of admission/observation: Escalation of care including admission/observation considered Not applicable Lab Data MDM Lab Attestation statement: I reviewed the patient's lab results. 05/27/25 18:54 05/27/25 18:54 Labs: Lab Results 05/27/25 05/27/25 Range/Units 18:54 20:09 WBC 8.6 (4.8-10.8) X10*3/uL RBC 4.43 (4.20-5.50) X10*6/uL Hgb 14.0 (12.0-16.0) g/dl Hct 40.9 (37.0-47.0) % MCV 92.3 (80.0-98.0) fL MCH 31.6 (27.0-33.0) pg MCHC 34.2 (31.0-35.0) g/dl RDW 12.8 (11.0-16.0) % Plt Count 248 (160-400) X10*3/uL MPV 9.9 (9.4-12.3) fL Immature Gran % (Auto) 0.5 H (0.0-0.4) % Neut % (Auto) 59.9 (45-73) % Lymph % (Auto) 31.1 (20-40) % [place] % (Auto) 6.3 (2-11) % Eos % (Auto) 1.6 (0-4) % Baso % (Auto) 0.6 (0-2) % Lymph # (Auto) 2.7 (1.2-4.9) X10*3/uL [place] # (Auto) 0.5 (0.1-1.2) X10*3/uL Eos # (Auto) 0.1 (0.0-0.4) X10*3/uL Baso # (Auto) 0.1 (0.0-0.2) X10*3/uL Abs Immat Gran (auto) 0.04 H (0.00-0.03) X10*3/uL Absolute Neuts (auto) 5.2 (2.0-8.3) x10*3/uL Absolute Nucleated RBC 0.000 (0.0-0.012) X10*3/uL Nucleated RBC % (auto) 0.0 (0.0-0.2) /100WBC Sodium 140 (135-145) mmol/L Potassium 3.9 (3.3-5.1) mmol/L Chloride 109 H (96-108) mmol/L Carbon Dioxide 23 (22-29) mmol/L Anion Gap 12 (12-20) BUN 16 (9-16) mg/dL Creatinine 0.69 (0.5-1.4) mg/dL Estim Creat Clear Calc 176.5 Estimated GFR > 60 Random Glucose 95 (60-115) mg/dL Calcium 9.0 (8.4-10.2) mg/dL Magnesium 1.9 (1.6-2.6) mg/dL Total Bilirubin 0.2 (0.0-1.0) mg/dL Direct Bilirubin < 0.2 (0.0-0.5) mg/dL AST 34 H (5-31) U/L ALT 58 H (0-31) U/L Alkaline Phosphatase 109 (39-117) U/L Troponin I High Sens < 2.7 (<3.5-17.0) ng/L Total Protein 7.2 (6.5-8.0) g/dL Albumin 4.2 (3.5-5.0) g/dL Influenza Type A (PCR) NEGATIVE (Negative) Influenza Type B (PCR) NEGATIVE (Negative) RSV RNA Qual (PCR) NEGATIVE (Negative) SARS-CoV-2 RNA (RT-PCR) NEGATIVE (Negative) Radiology Impression Discussion of test interpretation with radiology: I have reviewed the radiologist's reading. Discharge Plan Discharge Clinical Impression: Acute otitis media, right, Bronchospasm Patient Disposition: Home, Self-Care Instructions: Ear Infection (ED), Bronchospasm (ED) Additional Instructions: You were found to have otitis media on the right, see home care instructions. Take the Z-Edilberto as directed. If you start to develop symptoms of a vaginal yeast infection, take the Diflucan. Continue to use your inhaler as directed. Use the cough syrup as needed at nighttime, it will cause drowsiness, do not drive or operate machinery while taking this medication. Follow up with your primary care provider as needed. Prescriptions: New azithromycin 250 mg tablet 250 mg PO DAILY 4 Days Qty: 4 0RF Rx Instructions: start on day 2 of therapy codeine-guaifenesin [Guaifenesin AC] 10-100 mg/5 mL liquid 10 ml PO Q4-6H PRN (Reason: cough) Qty: 118 0RF No Action albuterol sulfate [Ventolin HFA] 90 mcg/actuation HFA aerosol inhaler 2 puff inhalation Q4-6H PRN (Reason: shortness of breath or wheezing) 30 Days Qty: 18 0RF doxycycline monohydrate 100 mg tablet 100 mg PO BID Qty: 20 0RF prednisone 20 mg tablet 40 mg PO DAILY Qty: 10 0RF fluticasone furoate 100 mcg/actuation blister with device 1 inh inhalation DAILY Qty: 30 0RF Rx Instructions: rinse mouth after use prednisone 20 mg tablet 60 mg PO DAILY Qty: 12 0RF ibuprofen 600 mg tablet 600 mg PO Q6H PRN (Reason: fever or pain) Qty: 30 0RF ondansetron 4 mg tablet,disintegrating 4 mg PO Q8H PRN (Reason: nausea and vomiting) Qty: 10 0RF prednisone 20 mg tablet 20 mg PO DAILY Qty: 7 0RF naproxen 500 mg tablet 500 mg PO BID Qty: 30 0RF morphine 15 mg tablet 15 mg PO Q8H PRN (Reason: severe pain (scale score 7-10)) Qty: 6 0RF Rx Instructions: Partial Fill upon patient request. tamsulosin 0.4 mg capsule 0.4 mg PO DAILY 90 Days Qty: 90 0RF naproxen 500 mg tablet 500 mg PO BID PRN (Reason: pain) Qty: 14 0RF amoxicillin-pot clavulanate 875-125 mg tablet 1 tab PO BID 7 Days Qty: 14 0RF topiramate 100 mg tablet 100 mg PO BEDTIME Stand Alone Forms: Work/School Release Interventions: ED Discharge Assessment Last Done: 05/27/25 22:58 Discharge Date/Time: 05/27/25 22:58 Print Language: [place]
--- NOTE | 2025-05-27 18:26 | ECG_ITS ---
Test Reason : dizziness Blood Pressure : */* mmHG Vent. Rate : 85 BPM Atrial Rate : 85 BPM P-R Int : 126 ms QRS Dur : 84 ms QT Int : 374 ms P-R-T Axes : 55 54 29 degrees QTcB Int : 445 ms Normal sinus rhythm with sinus arrhythmia Normal ECG When compared with ECG of 29-Dec-2024 11:30, No significant change was found Referred By: Flores Fortune Electronically Signed By: JO INMAN MD
[2025-05-27 19:05] LABS: MANUAL DIFF FLAG NO
[2025-05-27 19:09] LABS: Hematocrit 40.9 % (37.0-47.0); Hemoglobin 14.0 g/dl (12.0-16.0); Imm Gran Abs Auto 0.04 X10*3/uL (0.00-0.03); Imm Gran Pct Auto 0.5 % (0.0-0.4); Lymphocytes Absolute Auto 2.7 X10*3/uL (1.2-4.9); Mean Corpuscular HGB Conc 34.2 g/dl (31.0-35.0); Mean Corpuscular Hemoglobin 31.6 pg (27.0-33.0); Mean Corpuscular Volume 92.3 fL (80.0-98.0); NRBC Abs Auto 0.000 X10*3/uL (0.0-0.012); NRBC Pct Auto 0.0 /100WBC (0.0-0.2); Platelet Count 248 X10*3/uL (160-400); Red Blood Count 4.43 X10*6/uL (4.20-5.50); White Blood Count 8.6 X10*3/uL (4.8-10.8)
[2025-05-27 19:27] LABS: Alanine Aminotransferase 58 U/L (0-31); Albumin Level 4.2 g/dL (3.5-5.0); Alkaline Phosphatase 109 U/L (39-117); Anion Gap 12 (12-20); Aspartate Amino Transferase 34 U/L (5-31); Blood Urea Nitrogen 16 mg/dL (9-16); Calcium 9.0 mg/dL (8.4-10.2); Carbon Dioxide 23 mmol/L (22-29); Chloride 109 mmol/L (96-108); Creatinine Clr Calc Pharmacy 176.5; Estimated Glomerular Filt Rate > 60; Magnesium 1.9 mg/dL (1.6-2.6); Potassium 3.9 mmol/L (3.3-5.1); Sodium 140 mmol/L (135-145); Total Protein 7.2 g/dL (6.5-8.0)
[2025-05-27 19:38] LABS: Troponin-I High Sensitivity < 2.7 ng/L (<3.5-17.0)
--- OUTSIDE RECORDS SUMMARY | 2025-05-27 19:47 | XMS_ITS | Clinical Summary ---
Author Organization [facility] Address [address] [place], [place] [id number] Phone Care Team Providers Care Foreign Student Adviser Teacher Name Role Phone Sammy Arzate MD Primary Care Provider [phone] Allergies No known active allergies Medications citalopram [...] 76 03/10/2018 1:14 PM EDT Temperature 37.2 C (98.9 F) 03/10/2018 1:14 PM EDT Respiratory Rate - - Oxygen Saturation - [...] of 3 - 19+ 3-dose series) 2012 HPV Vaccines (1 - 3-dose SCD M series) 2020 Influenza Vaccines (#1) 2025 COVID-19 Vaccine (2024-2 6 season) 2025 HIB Vaccines Aged Out No longer eligi [...] complete this topic Procedures * Due to [place] [employer] law, this organization might not be sharing sensitive test results. Procedure Name Priority Date/Time Associated Diagnosis Comments CHLAMYDIA AND GONORRHEA, AMPLIFIED Routine 03/10/2018 1:26 PM EDT Acute cystitis with hematuria from Last 3 Months or Most Recently Relevant to Health Maintenance Results * Due to [place] [employer] law, this organization might not be sharing sensitive test results. * Chlamydia and Gonorrhea, Amplified (03/10/2018 1:26 PM EDT) Chlamydia Trachomatis, DNA Probe NEGATIVE (NEG) [facility] Comment: No Chlamydia Trachomatis RNA detected in this patient's sample (REFERENCE RANGE/NORMAL VALUE: NOT DETECTED) Note: This test uses salt machine operator- mediated amplification method to detect rRNA from C. Trachomatis URINE GC AMP PROBE NEGATIVE (NEG) [facility] Comment: No Neisseria Gonorrhoeae RNA detected in this patient's sample (REFERENCE RANGE/NORMAL VALUE: NOT DETECTED) NOTE: This test uses salt machine operator-mediated amplification method to detect rRNA from N.Gonorrhoeae. [...] without risk of sexual abuse. Consult the [facility] [place] if needed. Contact phone number . Therapeutic failure or success cannot be determined with the Aptima Combo2 assay since nucleic acid may persist following appropriate antimicrobial therapy. The Centers for Disease Control and Prevention (CDC) recommends confirmatory retesting using culture or a different nucleic acid amplification test when positive results occur, if indicated. Testing performed or reported by [facility], a Service of [facility], [address] [place] [address] CLIA [id number] Ashley Morgan MD, PhD, Sandwich Wrapper Urine (Urine) 03/10/2018 1:2 6 PM EDT 03/10/2018 6:22 PM EDT us Nilo Nieves MD LAB MICROBIOLOGY - GENERAL O RDERABLES Final Result [facility] from Last 3 Months or Most Recently Relevant to Health Maintenance [place] [address] [place] [address] OTHER O [facility] Care Teams Foreign Student Adviser Teacher Relationship Specialty Start Date End Date Sammy Arzate MD [address] [place] [address] [place] [address] PCP - General Pediatrics 03/10/18
--- OUTSIDE RECORDS SUMMARY | 2025-05-27 19:48 | XMS_ITS ---
Author Name [facility] Organization Unknown Care Team Organization Name Specialty Phone Email Start Date End Da te [facility] Pedro Pantoja Primary Care 02/07/20232023 [facility] Breezy Spencer Primary Care 06/12/20222023
--- OUTSIDE RECORDS SUMMARY | 2025-05-27 19:48 | XMS_ITS | Clinical Summary ---
Author Organization [address] [place] [address] Address [address] [place] [address] Phone Care Team Providers Care Polysomnographic Tech Name Role Phone Pedro Pantoja MD Primary Care Provider [phone] Allergies Active Allergy Reactions Criticality Noted Date Comments Dog Dander 03/10/2025 Medications linaCLOtide (Linzess) 145 mcg capsule Take 1 capsule (145 mcg total) by mouth 1 (one) time each day. 90 each 3 03/10/20 25 026 Active esomeprazole (NexIUM) [address] capsule Take 1 capsule (40 mg total) by mouth 1 (one) time each day before breakfast. Do not open capsule. 90 each 3 03/10/20 25 026 Active psyllium (METAMUCIL) 0.52 gram capsule Take 1 capsule (520 mg total) by mouth 1 (one) time each day. 90 capsule 03/10/20 25 025 Active FLUoxetine (PROzac) 10 mg capsule Take 1 capsule (10 mg total) by mouth 1 (one) time each day. 90 each 1 05/14/20 25 026 Active semaglutide (Wegovy) 0.25 mg/0.5 mL injection penIndications :Morbid obesity (CMS/HCC V24, CMS/HCC V28) Inject 0.25 mg under the skin every 7 (seven) days. 2 mL 05/14/20 25 025 Active nicotine (NICODERM CQ) 14 mg/[address] 1 patch on the skin 1 (one) time each day at the same time. 30 each 1 01/07/20 25 025 Discontinued FLUoxetine (PROzac) 10 mg capsule Take 1 capsule (10 mg total) by mouth 1 (one) time each day. 03/31/20 025 Discontinued(Re order) Active Problems Problem Noted Date Diagnosed Date Tobacco use 01/06/2025 Morbid obesity ([facility], [facility] V28) 2023 Palpitation 04/03/2023 Anxiety 09/12/2021 History of COVID-19 09/12/2021 Overview (05/29/2024): + 08/29/21 Encounters Date Type Department Care Team Description 05/14/2025 10:45 AM EDT Office Visit Internal Medicine - [address] [id number] Mukesh Caro PA Anxiety (Primary Dx); Morbid obesity ([facility]24, [facility] V28) 05/14/2025 Telephone Internal Medicine - [address] [phone] Pedro Pantoja MD 03/10/2025 10:40 AM EDT Consult Gastroenterology - [place] [address] [facility] [address] [place] [id number] Arianna Serrano NP Gastroesophageal reflux disease without esophagitis (Primary Dx); Hepatic steatosis; Chronic constipation; Morbid obesity with BMI of 45.0-49.9, adult ([facility] V24, [facility] V28); Tobacco use from Last 3 Months Surgical History Surgery Date Site/Laterality Comments OTHER SURGICAL HISTORY PROCEDURE: HISTORY OTHER; COMMENT: C sections x2 (2015, 2018) Medical History Medical History Date Comments Anxiety disorder DX:Anxiety diso rder Family History Medical History Relation Name Comments Diabetes Maternal Grandmother Relation Name Status Comments Brother 1 Alive Brother 2 Alive Brother 3 Alive Father Alive Maternal Grandfather Alive Maternal Grandmother Alive Mother Alive Paternal Grandfather Alive Paternal Grandmother Sister 1 Alive Sister 2 Alive Sister 3 Alive Social History Tobacco Use Types Packs/Day Years Used Date Smoking Tobacco: Every Day Cigarettes 0.5 5.8 Started: 08/05/2019 Smokeless Tobacco: Never Tobacco Cessation:Ready to Q uit: Not Asked; Counseling Given: Not Answered Alcohol Use Standard Drinks/Week Comments Not Currently 0 (1 standard drink = 0.6 oz pur e alcohol) Comments No Sex and Gender Information Value Date Recorded Sex Assigned at Not on file Legal Sex Female 11:28 PM EST Gender Identity Not on file Sexual Orientation Not on file Obstetrics History Last Filed Vital Signs Vital Sign Reading Time Taken Comments Blood Pressure 124/78 05/14/2025 10:41 AM EDT Pulse 72 05/14/2025 10:41 AM EDT Temperature - - Respiratory Rate 16 01/06/2025 10:12 AM EDT Oxygen Saturation 98% 03/10/2025 10:40 AM EDT Inhaled Oxygen Concentration - - Weight 145 kg (320 lb) 05/14/2025 10:41 AM EDT Height 172.7 cm (5' 8 ) 03/10/2025 10:40 AM EDT Body Mass Index 48.66 03/10/2025 10:40 AM EDT Plan of Treatment Upcoming Encounters Date Type Department Care Team (Late st Contact Info) Description 06/14/2025 2:30 PM EST Office Visit Internal Medicine - [facility] [address] [place] [address] Mukesh Caro PA [address] [place] [address] 08/24/2025 9:00 AM EST Consult Bariatric Surgery - [place] [address] [facility] [address] [place] [phone] Lb Bhandari MD [address] [place] [phone] Health Maintenance Due Date Last Done Comments Hepatitis B Vaccines (1 of 3 - 19+ 3-dose series) 2012 Pneumococcal Vaccine: Pediatrics (0 to 5 Years) and At-Risk Patients (6 to 49 Years) (1 of 2 - PCV) 2012 Cervical Cancer Screening: P ap Smear 2014 HPV Vaccines (1 - 3-dose SCD M series) 2020 HIV Screening 06/09/2024 Hepatitis C Screening 06/09/2024 Social Influencers of Health Screening 06/09/2024 Depression Screening 08/05/2024 02/27/2024 COVID-19 Vaccine (1 - 2023-2 5 season) 2025 Influenza Vaccine (#1) 2025 07/07/2015 Cholesterol Screening (Lipid Panel) 03/04/2029 03/04/2024, 03/04/2024 DTaP,Tdap,and Td Vaccines (4 - Td or Tdap) 05/25/2029 05/25/2019, 06/14/2015, 05/17/2011 RSV Immunization Adult Patients (1 - 1-dose 75+ series) 2068 HIB Vaccines Aged Out No longer eligi ble based on patient's age to complete this topic Hepatitis A Vaccines Aged Out No long er eligible based on patient's age to complete this topic IPV Vaccines Aged Out No longer eligi ble based on patient's age to complete this topic MMR Vaccines Aged Out No longer eligi ble based on patient's age to complete this topic Meningococcal ACWY Vaccine Aged Out N o longer eligible based on patient's age to complete this topic Meningococcal B Vaccine Aged Out No l onger eligible based on patient's age to complete this topic RSV Immunization Patients Under 20 months Aged Out No longer eligible b ased on patient's age to complete this topic Varicella Vaccines Aged Out No longer eligible based on patient's age to complete this topic Procedures Procedure Name Priority Date/Time Associated Diagnosis Comments HELICOBACTER PYLORI BREATH TEST Routine 03/11/2025 9:17 AM EDT Gastroesophageal reflux disease without esophagitis LIPID PANEL Routine 03/04/2024 DEPRESSION SCREENING Routine 02/27/2024 from Last 3 Months or Most Recently Relevant to Health Maintenance Results * Helicobacter pylori breath test (03/11/2025 9:17 AM EDT) H Pylori Breath Test Negative Negative LAB CHEMISTRY METHOD 03/11/2025 11:17 AM EDT [facility] Breath Oral cavity structure / Unknown Non-blood Collection / Unknown 03/11/2025 9:17 AM EDT 03/11/2025 9:17 AM EDT Arianna Serrano NP LAB BODY FLUIDS AND STOOLS ANA MULTANI Final Result [facility] ([facility]) [facility] [address] [place] [address], [place] [phone] * Lipid panel (03/04/2024) LDL/HDL Ratio 2 0 - 4 Triglycerides 85 0 - 150 mg/dL Cholesterol 114 0 - 200 mg/dL HDL 48 >=40 mg/dL LDL Cholesterol 49 0 - 100 mg/dL Blood Venous blood specimen / Unknown Historical Provider LAB BLOOD ORDERABLES Sofiya l Result * Depression Screening (02/27/2024) Pathologist [facility] Depression Screening abstracted Historical Provider HEALTH MAINTENANCE Final Result from Last 3 Months or Most Recently Relevant to Health Maintenance Insurance [facility] [address] [employer] Care Teams Polysomnographic Tech Relationship Specialty Start Date End Date Pedro Pantoja MD [facility] [place] [address] PCP - General Internal Medicine 08/31/21
[2025-05-27 20:51] LABS: Resp Syncy Virus RNA Qual PCR NEGATIVE (Negative); SARS COV2 PCR INHOUSE NEGATIVE (Negative)
[2025-05-27 22:58] VITALS: BP 131/76; PULSE 82; RESP 20; TEMP 36.7; O2SAT 96
== END 2025-05-27 22:58 | disposition home or self-care (01) ==
PROVIDERS: Physician Assistant Medical; Emergency Provider Emergency Medicine; PCP Internal Medicine Hematology & Oncology
DX: H66.91 Otitis media, unspecified, right ear (principal); J98.01 Acute bronchospasm; H81.09 Meniere's disease, unspecified ear; Z79.899 Other long term (current) drug therapy
CPT/HCPCS: 36415; 71046; 80048; 80076; 83735; 84484; 85025; 87637; 93005; 99283

== ENCOUNTER → 2025-05-27 18:26 | Outpatient (BNV) | payer OTHER, SELFPAY | PROVIDERS: Emergency Provider Emergency Medicine; PCP Internal Medicine Hematology & Oncology; Visit Provider Nuclear Medicine | DX: R05.9 Cough, unspecified (principal) | CPT/HCPCS: 71046 ==

== ENCOUNTER → 2025-05-27 18:26 | Outpatient (BNV) | payer OTHER, SELFPAY | PROVIDERS: Emergency Provider Emergency Medicine; PCP Internal Medicine Hematology & Oncology; Visit Provider Internal Medicine Cardiovascular Disease | DX: R42 Dizziness and giddiness (principal) | CPT/HCPCS: 93010 ==

== ENCOUNTER 2025-06-23 18:14 | Emergency (ER) | payer OTHER, SELFPAY ==
--- NOTE | ~2025-06-23 | US_ITS ---
CLINICAL HISTORY: Swelling; Humeral Squeezing Pain Left upper extremity venous duplex ultrasound Study was performed using color and spectral waveform analysis. Comparison: None. Findings: Deep veins are compressible with flow and augmentation. No significant adenopathy. Impression: No evidence for DVT This document has been electronically signed by: Gamal Tanner MD on 06/23/2025 23:46:36
--- NOTE | ~2025-06-23 | XR_ITS ---
CLINICAL HISTORY: LUE pain squeezing feeling Left humerus two views Comparison: None provided Findings: No acute fracture or dislocation. No focal bony abnormality. No radiopaque foreign body. Impression: No acute bony abnormality This document has been electronically signed by: Gamal Tanner MD on 06/23/2025 19:24:58
--- NOTE | ~2025-06-23 | XR_ITS ---
CLINICAL HISTORY: L shoulder pain Left shoulder three views Comparison: None provided Findings: No acute fracture or dislocation. No focal bony abnormality. No radiopaque foreign body. Impression: No acute bony abnormality This document has been electronically signed by: Gamal Tanner MD on 06/23/2025 19:16:49
--- NOTE | 2025-06-23 18:21 | ECG_ITS ---
Test Reason : CP Blood Pressure : */* mmHG Vent. Rate : 75 BPM Atrial Rate : 75 BPM P-R Int : 132 ms QRS Dur : 86 ms QT Int : 384 ms P-R-T Axes : 55 51 33 degrees QTcB Int : 428 ms Normal sinus rhythm Normal ECG When compared with ECG of 27-May-2025 18:50, No significant change was found Referred By: Angela Rodriguez Electronically Signed By: ARNIE LOMAS
[2025-06-23 18:39] VITALS: BP 143/85; PULSE 79; RESP 18; TEMP 36.4; O2SAT 98; BMI 48.9
--- NOTE | 2025-06-23 18:39 | ED_ITS ---
HPI - Chest Pain General Chief Complaint: Extremity Injury, Upper Stated Complaint: CP, Shoulder pain Time Seen by Provider: 06/23/25 22:08 Source: patient Mode of arrival: ambulatory Limitations: no limitations History of Present Illness ED Provider: Carlos PRABHAKAR HPI narrative: The patient is a 30-year-old female who woke approximately 2?weeks ago with pain in the top of the left shoulder and shoulder blade. The pain occasionally radiates to the chest and down to the elbow, but with the most bothersome and persistent discomfort located in the mid-upper arm (humerus region). She describes the pain as ?squeezing?. The pain is present daily and interferes with sleep. She notes occasional tingling in the fingers when pressure is applied to the arm. Heating pad and hot shower provide some relief; ibuprofen and acetaminophen give minimal relief. She denies injury, recent changes in activity, repetitive movements, heavy lifting, or fever. Denies any swelling of the hand/arm. 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 No prior history of blood clots; mother has a history of lower-extremity DVT. Related Data Home Medications ?Medication ?Instructions ?Recorded ?Confirmed topiramate 100 mg tablet 100 mg PO BEDTIME 03/05/25 Previous Rx's ?Medication ?Instructions ?Recorded Ventolin HFA 90 mcg/actuation 2 puff inhalation Q4-6H PRN 06/12/23 aerosol inhaler (albuterol sulfate) shortness of breat h or wheezing 30 days #18 grams amoxicillin 875 mg-potassium 1 tab PO BID 7 days #14 t abs 06/12/23 clavulanate 125 mg tablet doxycycline monohydrate 100 mg 100 mg PO BID #20 tabs 06/17/23 tablet prednisone 20 mg tablet 40 mg (2 x 20 mg) PO DAILY # 10 tabs 06/17/23 fluticasone furoate 100 1 inh inhalation DAILY #30 e a 07/10/23 mcg/actuation blister powder for inhalation prednisone 20 mg tablet 60 mg (3 x 20 mg) PO DAILY # 12 tabs 10/19/23 ibuprofen 600 mg tablet 600 mg PO Q6H PRN fever or p ain 07/10/24 #30 tabs morphine 15 mg immediate release 15 mg PO Q8H PRN scout re pain 10/28/24 tablet (scale score 7-10) #6 tabs naproxen 500 mg tablet 500 mg PO BID #30 tabs 10/28 ondansetron 4 mg disintegrating 4 mg PO Q8H PRN nausea and 10/28/24 tablet vomiting #10 tabs prednisone 20 mg tablet 20 mg PO DAILY #7 tabs 10/28 tamsulosin 0.4 mg capsule 0.4 mg PO DAILY 3 months #90 caps 10/29/24 naproxen 500 mg tablet 500 mg PO BID PRN pain #14 t abs 12/29/24 azithromycin 250 mg tablet 250 mg PO DAILY 4 days #4 t abs 05/27/25 codeine 10 mg-guaifenesin 100 mg/5 10 ml PO Q4-6H PRN cough #118 mL 05/27/25 mL oral liquid (Guaifenesin AC) Allergies Allergy/AdvReac Type Severity Reaction Status Date / Time dog dander (DOG) Allergy Mild SNEEZING Verified 06/23/25 18:43 WATER EYS, HIVES amoxicillin (From Augmentin) Allergy Rash Verified 06/23/25 18:43 clavulanic acid (From Allergy Rash Verified 06/23/25 18:43 Augmentin) Review of Systems 2 Review of Systems: Yes all other systems are reviewed and are negative PMFSH Past Medical History Medical History (Updated 06/24/25 @ 00:06 by Carlos Young PA-C) Meniere syndrome Seizure disorder Basilar migraine Social History Social History Alcohol intake: former Patient Tobacco Use Status: Current everyday Tobacco user Advance Directives: No Advance Directives Information Provided: No Patient : No Physical Exam 2 Vital Signs: Vital Signs: Last Vital Signs Temp 97.9 F 06/23/25 22:56 Pulse 70 06/23/25 22:56 Resp 16 06/23/25 22:56 BP 122/66 06/23/25 22:56 Pulse Ox 96 06/23/25 22:56 O2 Del Method Room Air 06/23/25 22:56 BMI result Body Mass Index 48.9 CONSTITUTIONAL: The patient appears non-toxic, well nourished and in no acute distress. Vital signs as documented. HEAD: Atraumatic, normocephalic. EYES: EOMs grossly intact, pupils equal, conjunctiva clear, no exudate. ENT: Nares patent, no discharge. Airway patent, no audible stridor, visible mucosa is pink and moist without noted lesions. NECK: trachea is midline, no obvious masses or gross abnormalities. No cervical midline tenderness, no impaired or painful range of motion of the neck. CHEST: Symmetric movement, normal appearance. LUNGS: Non-labored work of breathing. CARDIAC: No evidence of hypoperfusion. ABDOMEN: Nondistended, no obvious injury. : Deferred. EXTREMITIES: There is no point tenderness, no bony tenderness, no crepitus, palpation does not reproduce the patient's pain. Patient is able to range the left shoulder without pain, no pain reproduced with pushing or pulling against resistance. There is no associated swelling, Darren's test is normal, strength 5/5, dexterity intact, including opposition. Moves all other extremities spontaneously without reported pain. No obvious injury or deformity noted. NEURO: Alert and oriented x3, CN II-XII appear grossly intact. Cerebellar Functioning grossly intact. Speech clear and appropriate. SKIN: Warm, dry, color appropriate. No rashes or lesions noted. Course Course Course Narrative: This is a Rapid Medical Exam performed in triage by Angela Rodriguez PA-C. Full HPI, ROS and PE to be performed by primary ED provider. 30 yo F presenting to the ED c/o L shoulder pain x2.5 wks - woke up with pain. States pain takes breath away & radiates to chest & down LUE. denies known injury PE: LUE without appreciable deformity. Mild tenderness to humerus. Neurovascularly intact distally. Range of motion intact. Talking in complete sentences Plan: EKG, labs, XR Medical Decision Making Medical Decision Making MDM Narrative: 10:27 PM 06/23/2025 (Ally PRABHAKAR): The patient is a 30-year-old female who woke approximately 2?weeks ago with pain in the top of the left shoulder and shoulder blade. The pain occasionally radiates to the chest and down to the elbow, but with the most bothersome and persistent discomfort located in the mid-upper arm (humerus region). She describes the pain as ?squeezing?. The pain is present daily and interferes with sleep. She notes occasional tingling in the fingers when pressure is applied to the arm. Heating pad and hot shower provide some relief; ibuprofen and acetaminophen give minimal relief. She denies injury, recent changes in activity, repetitive movements, heavy lifting, or fever. Denies any swelling of the hand/arm. 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 No prior history of blood clots; mother has a history of lower-extremity DVT. On exam the patient has no point tenderness, no bony tenderness, no crepitus, palpation does not reproduce the patient's symptoms. There was no cervical midline tenderness, no impaired or painful range of motion of the neck. Patient is able to range the left shoulder without pain, no pain reproduced with pushing or pulling against resistance. There is no associated swelling, Darren's test is normal, no other acute findings. The patient's laboratory evaluation is reassuring, no leukocytosis, anemia, electrolyte abnormality, or NISHANT. The patient's troponin is negative, the patient's EKG is nonischemic. The patient's shoulder and humerus x-rays show no dislocation, subluxation, separation, or fracture. No other acute findings. The patient's presentation is concerning for possible for extremity DVT, patient will be sent for venous duplex of the upper extremity. 12:04 AM 06/24/2025 (Ally PRABHAKAR): The patient's ultrasound is negative for DVT, the exact cause of the patient's pain is not entirely clear, patient will be discharged with instructions to follow up with PCP for additional evaluation and management. Admission/Observation Consideration of admission/observation: Escalation of care including admission/observation considered Lab Data MDM Lab Attestation statement: I reviewed the patient's lab results. 06/23/25 19:29 06/23/25 19:29 Labs: Lab Results 06/23/25 Range/Units 19:29 WBC 7.5 (4.8-10.8) X10*3/uL RBC 4.40 (4.20-5.50) X10*6/uL Hgb 13.9 (12.0-16.0) g/dl Hct 41.1 (37.0-47.0) % MCV 93.4 (80.0-98.0) fL MCH 31.6 (27.0-33.0) pg MCHC 33.8 (31.0-35.0) g/dl RDW 12.8 (11.0-16.0) % Plt Count 207 (160-400) X10*3/uL MPV 10.1 (9.4-12.3) fL Immature Gran % (Auto) 0.3 (0.0-0.4) % Neut % (Auto) 61.5 (45-73) % Lymph % (Auto) 28.6 (20-40) % Collier % (Auto) 6.4 (2-11) % Eos % (Auto) 2.4 (0-4) % Baso % (Auto) 0.8 (0-2) % Lymph # (Auto) 2.1 (1.2-4.9) X10*3/uL Collier # (Auto) 0.5 (0.1-1.2) X10*3/uL Eos # (Auto) 0.2 (0.0-0.4) X10*3/uL Baso # (Auto) 0.1 (0.0-0.2) X10*3/uL Abs Immat Gran (auto) 0.02 (0.00-0.03) X10*3/uL Absolute Neuts (auto) 4.6 (2.0-8.3) x10*3/uL Absolute Nucleated RBC 0.000 (0.0-0.012) X10*3/uL Nucleated RBC % (auto) 0.0 (0.0-0.2) /100WBC Sodium 136 (135-145) mmol/L Potassium 4.2 (3.3-5.1) mmol/L Chloride 106 (96-108) mmol/L Carbon Dioxide 24 (22-29) mmol/L Anion Gap 10 L (12-20) BUN 12 (9-16) mg/dL Creatinine 0.79 (0.5-1.4) mg/dL Estim Creat Clear Calc 156.1 Estimated GFR > 60 Random Glucose 92 (60-115) mg/dL Calcium 9.5 (8.4-10.2) mg/dL Troponin I High Sens < 2.7 (<3.5-17.0) ng/L Independent Interpretation I performed an independent interpretation of an: EKG (EKG shows sinus rhythm with a rate of 75, no evidence of acute ischemia, no ST elevation, no ectopy. QTC 428. Compared to previous on 05/27/2025 there are no significant morphology changes. ) Radiology Impression Discussion of test interpretation with radiology: I have reviewed the radiologist's reading. Radiologist Impression: Left shoulder three views Comparison: None provided Findings: No acute fracture or dislocation. No focal bony abnormality. No radiopaque foreign body. Impression: No acute bony abnormality This document has been electronically signed by: Gamal Tanner MD on 06/23/2025 19:16:49 Left humerus two views Comparison: None provided Findings: No acute fracture or dislocation. No focal bony abnormality. No radiopaque foreign body. Impression: No acute bony abnormality This document has been electronically signed by: Gamal Tanner MD on 06/23/2025 19:24:58 CLINICAL HISTORY: Swelling; Humeral Squeezing Pain Left upper extremity venous duplex ultrasound Study was performed using color and spectral waveform analysis. Comparison: None. Findings: Deep veins are compressible with flow and augmentation. No significant adenopathy. Impression: No evidence for DVT This document has been electronically signed by: Gamal Tanner MD on 06/23/2025 23:46:36 External Record Review External record reviewed: Outpatient record and Prior outpatient labs Prescription Management I considered prescription management with: Pain Medication Discharge Plan Discharge Clinical Impression: Left upper arm pain Patient Disposition: Home, Self-Care Instructions: Arm Pain (ED) Additional Instructions: Thank you for choosing [facility]'s Emergency Department for your care today. Thankfully your laboratory evaluation, EKG, x-rays, and ultrasound today are all reassuring. There was no evidence of a fracture, dislocation, separation, bony lesion, blood clot, or cardiac cause for your symptoms. The exact cause of your symptoms is not entirely clear however there was no evidence of an emergent process requiring admission to the hospital or continued ED observation, and it is safe to discharge you home. You should take alternating (staggered) doses of ibuprofen 600mg and Tylenol 1000mg every 4 hours as needed for any additional pain. Please rest the injured area, and apply ice for 20 minutes every hour. We have treated you with a lidocaine patch, if you find this provides you significant relief additional patches can be purchased at any local pharmacy without a prescription. Please follow up with your primary care physician for re-evaluation, additional management of your symptoms, further investigation into the source of your symptoms, and continued preventative care. If you do not have a primary care physician, please call the [facility] at [phone] to establish a new primary care physician. While waiting to establish your new primary care physician, you can call our Walk[facility]in [facility] at [phone] for non-emergency needs. Please return to the emergency department if you develop a severe or sudden change in your symptoms, a fever over 100.4 that does not improve with Tylenol or Ibuprofen, recurrent vomiting, or any other new or worsening symptoms or concerns. Prescriptions: No Action albuterol sulfate [Ventolin HFA] 90 mcg/actuation HFA aerosol inhaler 2 puff inhalation Q4-6H PRN (Reason: shortness of breath or wheezing) 30 Days Qty: 18 0RF doxycycline monohydrate 100 mg tablet 100 mg PO BID Qty: 20 0RF prednisone 20 mg tablet 40 mg PO DAILY Qty: 10 0RF fluticasone furoate 100 mcg/actuation blister with device 1 inh inhalation DAILY Qty: 30 0RF Rx Instructions: rinse mouth after use prednisone 20 mg tablet 60 mg PO DAILY Qty: 12 0RF ibuprofen 600 mg tablet 600 mg PO Q6H PRN (Reason: fever or pain) Qty: 30 0RF azithromycin 250 mg tablet 250 mg PO DAILY 4 Days Qty: 4 0RF Rx Instructions: start on day 2 of therapy codeine-guaifenesin [Guaifenesin AC] 10-100 mg/5 mL liquid 10 ml PO Q4-6H PRN (Reason: cough) Qty: 118 0RF ondansetron 4 mg tablet,disintegrating 4 mg PO Q8H PRN (Reason: nausea and vomiting) Qty: 10 0RF prednisone 20 mg tablet 20 mg PO DAILY Qty: 7 0RF naproxen 500 mg tablet 500 mg PO BID Qty: 30 0RF morphine 15 mg tablet 15 mg PO Q8H PRN (Reason: severe pain (scale score 7-10)) Qty: 6 0RF Rx Instructions: Partial Fill upon patient request. tamsulosin 0.4 mg capsule 0.4 mg PO DAILY 90 Days Qty: 90 0RF naproxen 500 mg tablet 500 mg PO BID PRN (Reason: pain) Qty: 14 0RF amoxicillin-pot clavulanate 875-125 mg tablet 1 tab PO BID 7 Days Qty: 14 0RF topiramate 100 mg tablet 100 mg PO BEDTIME Referrals: Pedro Pantoja MD [Primary Care Provider, Internal Medicine] Clinical Impression: Left upper arm pain Print Language: Telugu
[2025-06-23 19:38] LABS: MANUAL DIFF FLAG NO
[2025-06-23 19:44] LABS: Hematocrit 41.1 % (37.0-47.0); Hemoglobin 13.9 g/dl (12.0-16.0); Imm Gran Abs Auto 0.02 X10*3/uL (0.00-0.03); Imm Gran Pct Auto 0.3 % (0.0-0.4); Lymphocytes Absolute Auto 2.1 X10*3/uL (1.2-4.9); Mean Corpuscular HGB Conc 33.8 g/dl (31.0-35.0); Mean Corpuscular Hemoglobin 31.6 pg (27.0-33.0); Mean Corpuscular Volume 93.4 fL (80.0-98.0); NRBC Abs Auto 0.000 X10*3/uL (0.0-0.012); NRBC Pct Auto 0.0 /100WBC (0.0-0.2); Platelet Count 207 X10*3/uL (160-400); Red Blood Count 4.40 X10*6/uL (4.20-5.50); White Blood Count 7.5 X10*3/uL (4.8-10.8)
[2025-06-23 19:57] LABS: Anion Gap 10 (12-20); Blood Urea Nitrogen 12 mg/dL (9-16); Calcium 9.5 mg/dL (8.4-10.2); Carbon Dioxide 24 mmol/L (22-29); Chloride 106 mmol/L (96-108); Creatinine Clr Calc Pharmacy 156.1; Estimated Glomerular Filt Rate > 60; Potassium 4.2 mmol/L (3.3-5.1); Sodium 136 mmol/L (135-145)
[2025-06-23 20:10] LABS: Troponin-I High Sensitivity < 2.7 ng/L (<3.5-17.0)
[2025-06-23 22:56] VITALS: BP 122/66; PULSE 70; RESP 16; TEMP 36.6; O2SAT 96
[2025-06-24] MEDS: Lidocaine 4 % Patch ADH..PATCH 1 PATCH TRANSDERMA (00:19)
[2025-06-24 00:23] VITALS: BP 122/66; PULSE 70; RESP 16; TEMP 36.6; O2SAT 96
--- OUTSIDE RECORDS SUMMARY | 2025-06-24 05:20 | XMS_ITS | Clinical Summary ---
Author Organization [facility] Address [address] [place], [place] [id number] Phone Care Team Providers Care Legislators Name Role Phone Sammy Arzate MD Primary Care Provider [phone] Allergies No known active allergies Medications citalopram [...] complete this topic Procedures * Due to [place] [employer] law, this organization might not be sharing sensitive test results. Procedure Name Priority Date/Time Associated Diagnosis Comments CHLAMYDIA AND GONORRHEA, AMPLIFIED Routine 03/10/2018 1:26 PM EDT Acute cystitis with hematuria from Last 3 Months or Most Recently Relevant to Health Maintenance Results * Due to [place] [employer] law, this organization might not be sharing sensitive test results. * Chlamydia and Gonorrhea, Amplified (03/10/2018 1:26 PM EDT) Chlamydia Trachomatis, DNA Probe NEGATIVE (NEG) [facility] Comment: No Chlamydia Trachomatis RNA detected in this patient's sample (REFERENCE RANGE/NORMAL VALUE: NOT DETECTED) Note: This test uses firefighter type one- mediated amplification method to detect rRNA from C. Trachomatis URINE GC AMP PROBE NEGATIVE (NEG) [facility] Comment: No Neisseria Gonorrhoeae RNA detected in this patient's sample (REFERENCE RANGE/NORMAL VALUE: NOT DETECTED) NOTE: This test uses firefighter type one-mediated amplification method to detect rRNA from N.Gonorrhoeae. [...] without risk of sexual abuse. Consult the [facility] [place] if needed. Contact phone number . Therapeutic failure or success cannot be determined with the Aptima Combo2 assay since nucleic acid may persist following appropriate antimicrobial therapy. The Centers for Disease Control and Prevention (CDC) recommends confirmatory retesting using culture or a different nucleic acid amplification test when positive results occur, if indicated. Testing performed or reported by [facility], a Service of [facility], [address] [place] [address] CLIA [id number] Ashley Morgan MD, PhD, Deliver Driver Urine (Urine) 03/10/2018 1:2 6 PM EDT 03/10/2018 6:22 PM EDT us Nilo Nieves MD LAB MICROBIOLOGY - GENERAL O RDERABLES Final Result [facility] from Last 3 Months or Most Recently Relevant to Health Maintenance [place] [address] [place] [address] OTHER O O Care Teams Legislators Relationship Specialty Start Date End Date Sammy Arzate MD [address] [place] [address] [place] [id number] PCP - General Pediatrics 03/10/18
== END 2025-06-24 00:24 | disposition home or self-care (01) ==
PROVIDERS: Physician Assistant; Emergency Provider Emergency Medicine; PCP Internal Medicine
DX: M79.602 Pain in left arm (principal); R07.9 Chest pain, unspecified; M25.512 Pain in left shoulder; R60.0 Localized edema
CPT/HCPCS: 36415; 73030; 73060; 80048; 84484; 85025; 93005; 93971; 99284; 99285

== ENCOUNTER → 2025-06-23 18:21 | Outpatient (BNV) | payer OTHER, SELFPAY | PROVIDERS: Emergency Provider Emergency Medicine; PCP Internal Medicine; Visit Provider Internal Medicine | DX: R07.9 Chest pain, unspecified (principal) | CPT/HCPCS: 93010 ==

== ENCOUNTER → 2025-06-23 18:41 | Outpatient (BNV) | payer OTHER, SELFPAY | PROVIDERS: Visit Provider Radiology Diagnostic Radiology | DX: R22.32 Localized swelling, mass and lump, left upper limb (principal); M79.622 Pain in left upper arm | CPT/HCPCS: 73030; 73060; 93971 ==